=== PATIENT | female | born 1935 | race Caucasian/White ===

== ENCOUNTER 2018-11-08 12:42 | Inpatient (IN) ==
[2018-11-08] MEDS ORDERED: LOPRESSOR IV ONE (13:22)
--- NOTE | 2018-11-08 13:30 | EKG Report ---
Test Performed on : 11/08/2018 12:57:33 PM Test Reason : weak Blood Pressure : / mmHG Vent. Rate : 131 BPM Atrial Rate : 163 BPM P-R Int : 000 ms QRS Dur : 064 ms QT Int : 292 ms P-R-T Axes : 000 007 -09 degrees QTc Int : 431 ms Atrial fibrillation. with rapid ventricular response. Anteroseptal infarct , age undetermined Abnormal ECG When compared with ECG of 17-NOV-2017 07:36, Atrial fibrillation. has replaced Sinus rhythm. Vent. rate has increased BY 59 BPM Anteroseptal infarct is now present Unconfirmed Result
--- NOTE | 2018-11-08 13:51 | Diag Imaging Result Doc PS360 ---
EXAM: CHEST-1 VIEW INDICATION: tachy TECHNIQUE: One view COMPARISON: 11/17/2017 FINDINGS: There is mild blunting of the right costophrenic angle suggesting a probable small effusion. There is suggestion of minimal atelectasis at the right lung base. The lungs are grossly clear, otherwise. There is no evidence of pneumothorax. The cardiomediastinal silhouette and central vasculature are grossly unremarkable. IMPRESSION: Blunting of the right costophrenic angle suggesting a likely trace effusion. No definite acute pathology, otherwise. Electronically signed by Bert Mesa 11/08/2018 1:49 PM
[2018-11-08 13:54] LABS: BASO# 0.03 X1000 (0.0-0.2); BASO% 0.1 % (0.0-0.8); EOS# 0.01 X1000 (0.0-0.7); HEMATOCRIT 47.8 % (37.0-47.0); HEMOGLOBIN 14.9 g/dL (12.0-16.0); IMM GRAN# 0.15 X1000 (0.0-0.04); IMM GRAN% 0.5 % (0.0-0.5); LYMPH# 1.17 X1000 (1.2-3.4); MCH 29.3 PG (27-31); MCHC 31.2 g/dL (33-37); MCV 94.1 FL (81-99); MONO# 1.57 X1000 (0.11-0.59); MONO% 5.4 % (1.7-9.3); MPV 9.5 FL (7.4-10.4); NEUT# 26.28 X1000 (1.4-6.5); PLT 318 X1000 (130-400); RBC 5.08 XMIL (4.2-5.4); RDW 13.6 % (11.5-14.5); WBC 29.21 X1000 (4.8-10.8)
[2018-11-08 14:11] LABS: BANDS 3 % (0-1); LYMPHS 1 % (21-51); MONO 4 % (1-9); SEGS 92 % (42-75)
[2018-11-08 14:22] LABS: AGAP 14; ALB/GLOB RATIO 0.8; ALBUMIN 3.3 g/dL (3.5-5.0); ALKALINE PHOSPHATASE 200 U/L (32-104); BUN 24 mg/dL (8-22); CALCIUM 10.1 mg/dL (8.8-10.2); CHLORIDE 92 mmol/L (98-107); COSMO 275; CREATININE 0.7 mg/dL (0.5-0.9); ESTIMATED GFR > 60; GLUCOSE 116 mg/dL (70-104); GOT 76 U/L (10-30); GPT 48 U/L (10-36); POTASSIUM 4.7 mmol/L (3.5-5.1); SODIUM 135 mmol/L (136-145); TCO2 29 mmol/L (25-35); TOTAL BILIRUBIN 0.71 mg/dL (0.20-1.00); TOTAL PROTEIN 7.6 g/dL (6.3-8.3)
[2018-11-08] MEDS ORDERED: CARDIZEM IV ONE (14:59)
[2018-11-08] MEDS ORDERED: ZOSYN 3.375 GM in NS 50 ML IV ONE (14:59)
[2018-11-08] MEDS ORDERED: NS 500 ML IV ONE (14:59)
[2018-11-08] MEDS: CARDIZEM 125 MG/D5W 125 MG/125 ML IVPB IV SCH (16:12)
[2018-11-08] MEDS ORDERED: VANCOMYCIN 1 GM/NS 1 GM/250 ML IVPB IV ONE (16:13)
[2018-11-08] MEDS ORDERED: ZOSYN 3.375 GM in NS 50 ML IV SCH (16:15)
[2018-11-08] MEDS ORDERED: NS 1,000 ML IV SCH (16:15)
--- NOTE | 2018-11-08 16:22 | PROVIDER DOCUMENTATION ---
This chart was entered by Mary Nayak Scribe, acting as scribe for Milton Sheldon MD. HPI-General Adult - General Chief Complaint: Palpitations Stated Complaint: AFIB, HIGH HR - HOME HEALTH NURSE SENT Time Seen by Provider: 11/08/18 13:08 Source: patient, family (son) Allergies/Adverse Reactions: Patient Allergies Allergy/AdvReac Type Severity Reaction Status Date / Time No Known Allergies Allergy Verified 11/08/18 13:45 Home Medications: Home Medication List Medication Instructions Recorded Confirmed Last Taken Type Furosemide [Lasix] 40 mg PO DAILY tablet 03/26/17 11/08/18 11/08/18 Rx Donepezil [Aricept] 10 mg PO QHS 07/23/17 11/08/18 11/07/18 History Ferrous Sulfate [Iron] 325 mg PO DAILY 07/23/17 11/08/18 11/08/18 History Folic Acid 1 mg PO QHS 07/23/17 11/08/18 11/07/18 History Lorazepam 1 mg PO TID 07/23/17 11/08/18 Unknown History Metoprolol [Lopressor] 25 mg PO BID 07/23/17 11/08/18 11/08/18 History Mirtazapine [Remeron] 15 mg PO QHS 07/23/17 11/08/18 11/07/18 History Potassium Chloride 20 meq PO DAILY 30 Days #60 07/25/17 11/08/18 11/08/18 Rx tablet.er Apixaban [Eliquis] 5 mg PO BID 11/08/18 11/08/18 11/08/18 History Cyclobenzaprine HCl 5 mg PO DIRECTED PRN 11/08/18 11/08/18 Unknown History Duloxetine HCl [Cymbalta] 20 mg PO QHS 11/08/18 11/08/18 Unknown History Esomeprazole Magnesium 10 mg PO QAM 11/08/18 11/08/18 11/08/18 History Spironolactone [Aldactone] 12.5 mg PO DAILY 11/08/18 11/08/18 11/08/18 History - History of Present Illness -Gen Adult Nature of Presenting Problems: 83 yowf presents to the ed with c/o swollen parotid gland. pt has seen dr jena IZAGUIRRE and has been receiving tx for parotitis. pt home health nurse came out this morning and pt c/o rt jaw pain, fatigue and was in [place] with rvr. pt has hx of afib but home health nurse told son she needed to be seen at the ed. pt is nontoxic in appearance but does have pain to rt jaw with swelling noted. pt has no redness of area on exam Location of Pain/Injury: reports: face (rt jaw) Quality of Pain: reports: aching Severity: reports: moderate Onset/Duration: reports: 1 week ago Timing: reports: still present Modifying Factors: worse with: eating, movement (of rt jaw) Associated Symptoms: reports: fatigue, joint pain (jaw pain). denies: back/neck pain, chest pain, diarrhea, fever/chills, headaches, sinus congestion/drainage, nausea, shortness of breath, vomiting, weakness Similar Symptoms Previously?: Yes (parotitis dx by ENT) Recently seen or treated by another doctor?: Yes (dr bella ENT) Review of Systems - Adult - REVIEW OF SYSTEMS - ADULT Constitutional: denies: chills, fever Eyes: reports: no symptoms reported Ears, Nose, Mouth & Throat: reports: see HPI, other (jaw pain) Cardiovascular: reports: see HPI, irregular heart rate, palpitations. denies: c hest pain, edema Respiratory: denies: cough, shortness of breath, wheezing Gastrointestinal: reports: no symptoms reported Genitourinary: reports: no symptoms reported Musculoskeletal: denies: back pain, neck pain Integumentary: reports: no symptoms reported Neurological: denies: dizziness/vertigo, headache/migraines Psychiatric: reports: no symptoms reported Endocrine: reports: no symptoms reported Hematologic/Lymphatic: reports: no symptoms reported Allergic/Immunologic: reports: no symptoms reported All Other Systems: Reviewed and Negative Past History - Adult - PAST MEDICAL HISTORY-ADULT Review of Records: reports: Old Records Reviewed, Nursing Assessment Review, Medications Reviewed, Social history reviewed & non-contributory. Major Childhood Illnesses: reports: denies history Cardiovascular: reports: A-Fib, blood clots, CHF, HTN Respiratory: reports: denies history Gastrointestinal: reports: denies history Obstetrical/Gynecological: reports: denies history Genitourinary: reports: denies history Musculoskeletal: reports: denies history Hand Dominance: Right Handed Neurological: reports: denies history Endocrine/Immune: reports: Diabetes Other Conditions: reports: denies history - PRIOR SURGERIES/PROCEDURES Surgical/Procedure History: reports: hysterectomy, tonsillectomy, appendectomy, cholecystectomy - IMMUNIZATION STATUS Childhood Immunizations: See Nurse Assessment Flu Vaccine: See Nurse Assessment - FAMILY HISTORY Family History: reviewed, not pertinent - SOCIAL HISTORY Smoking: denies Substance Use: denies Living Situation: family Physical Exam-General - PHYSICAL EXAM-ADULT Initial Vital Signs Reviewed: Yes - CONSTITUTIONAL General Appearance: appears well, alert - EYES Eyes: PERRL/EOMI, pink conjunctivae - HEAD, EARS, NOSE, MOUTH & THROAT HENMT: moist mucous membranes, pharynx normal, other (rt jaw pain with parotitis and swelling firm to palpation). negative: pharyngeal erythema, tonsillar exudate - NECK Neck: full range of motion, supple, normal inspection - RESPIRATORY Respiratory: chest non-tender, lungs clear, normal breath sounds, increased rate - CARDIOVASCULAR Cardiovascular: normal peripheral pulses, irregularly irregular (afib with rvr) - CHEST (BREASTS) Chest/Breast: deferred - GASTROINTESTINAL (ABDOMEN) Abdominal Exam: normal bowel sounds, non tender, soft - LYMPHATIC Lymphatic: enlargement (of parotid rt side) - MUSCULOSKELETAL Back Exam: normal inspection Extremity: normal range of motion, non-tender, normal inspection, normal capillary refill, pelvis stable - SKIN Integumentary: normal color, normal turgor, warm/dry. negative: erythema - NEUROLOGIC Neurologic: grossly normal, no motor/sensory deficits - PSYCHIATRIC Psych/Mental Status: normal mood/affect, normal thought content, normal thought process, oriented x 3 Progress - PLAN OF CARE/RESULTS Progress/Plan/Lab Results: Vital Signs - 8 hr 11/08/18 12:54 Temperature 98.2 F Pulse Rate 131 H Respiratory Rate 48 H Blood Pressure 116/65 O2 Sat by Pulse Oximetry 98 Orders Category Date Time Status Nursing- Obtain EKG ONCE Care 11/08/18 13:22 Active CHEST-1 VIEW [RAD] Stat Exams 11/08/18 13:22 Ordered CBC WITH DIFF [HEME] Stat Lab 11/08/18 13:21 Uncollected COMPREHENSIVE METABOLIC PANEL [CHEM] Stat Lab 11/08/18 13:22 Uncollected PRO B-NATRIURETIC PEPTIDE Stat Lab 11/08/18 13:22 Uncollected TROPONIN T Stat Lab 11/08/18 13:22 Uncollected Metoprolol [Lopressor] Med 11/08/18 13:22 Once 5 mg IV NOW ONE EKG [EKG] Stat Ther 11/08/18 13:22 Ordered Result Diagrams: 11/08/18 13:30 11/08/18 13:30 - EKG 1 Time of EKG reading by physician:: 13:05 EKG Read and Signed by:: Milton Sheldon EKG Interpretation (*Must complete 3 of following elements*): Abnormal Rate: 131 Rhythm: afib with rvr [place]: normal QRS: normal [place] Interval: normal ST Wave: normal Comments: anteroseptal infarct, age undetermined - XRAY 1 XRAY: Bilateral XRAY Study: Chest Impression: See EMR Report (EXAM: CHEST-1 VIEW INDICATION: tachy TECHNIQUE: One view COMPARISON: 11/17/2017 FINDINGS: There is mild blunting of the right costophrenic angle suggesting a probable small effusion. There is suggestion of minimal atelectasis at the right lung base. The lungs are grossly clear, otherwise. There is no evidence of pneumothorax. The cardiomediastinal silhouette and central vasculature are grossly unremarkable. IMPRESSION: Blunting of the right costophrenic angle suggesting a likely trace effusion. No definite acute pathology, otherwise. Electronically signed by Bert Mesa 11/08/2018 1:49 PM 11/08/18 1349 Interpreting Physician: Bert Mesa MD Dictated Date/Time: 11/08/18 1347 cc: Milton Sheldon MD; Nabil Gonzalez MD) - CONSULTS/PCP/HOSPITALIST Notification #1 *Consult/PCP/Hospitalist*: dr gonzalez Time Discussed: 15:14 (dr gonzalez will give pt to hospitalist ) Reason/Comments: phone consult Consult Disposition: Will see in ED Departure - Departure Date of Disposition Decision: 11/08/18 Time of Disposition Decision: 15:00 DIAGNOSIS: Atrial fibrillation with RVR, Parotitis, Leukocytosis Disposition: ADMITTED INPATIENT 09 Certified Medical Emergency: Emergent Condition: Fair Referrals and Follow-Ups: Nabil Gonzalez MD [Primary Care Provider] - - Critical Care Note This patient required my direct & personal management of CC.: Yes Total Time (mins): 48 Critical Care Statement: This patient required my direct personal management to treat or rule out processes, the absence of which, could potentiallly result in sudden, clinically significant life or limb threatening deterioration. Attestation - Physician/ NICK Attestation Patient care was provided by Advanced Practice Provider:: No The physician spent face to face time with patient:: Yes Advanced Practice Provider documentation review:: Supervising physician onsite and consulted in the evaluation and care of this patient. The physician did have a face to face encounter with the patient. This chart was documented by the indicated scribe, (Mary Nayak Scribe) and accurately reflects the services I performed and decisions made by me, Milton Sheldon MD, as attested by the provider's signature.
--- NOTE | 2018-11-08 16:49 | HISTORY AND PHYSICAL ---
She is complaining of her heart rate being rapid. She had been recently treated by ENT for parotid irritation, parotitis and put on some p.o. antibiotics and noticed some palpitations and came to the emergency room. She has not been eating or drinking much and she is a little bit volume depleted. Her heart rate was in the 150s with underlying atrial fibrillation. PAST MEDICAL HISTORY: 1. Chronic atrial fibrillation. 2. Heart failure. 3. Hypertension . 4. COPD. 5. Dementia. According to her sons she has had intermittent episodes of shortness of breath in the past, did not really complain much shortness of breath today but has been troubled by her parotitis and not eating and drinking and rapid heart rate. Denies fever, chills, denies pleuritic pain, denies squeezing chest pain. No real dyspnea. No orthopnea, no paroxysmal nocturnal dyspnea. FAMILY HISTORY: Negative for heart disease and diabetes. Her mother had breast cancer. SOCIAL HISTORY: She does not smoke or drink or use illicit drugs lives at home. Sitter to help her now and there. PAST SURGICAL HISTORY: 1. Status post hysterectomy. 2. Cholecystectomy. 3. Appendectomy. REVIEW OF SYSTEMS: General: No weight gain or loss. No fever, chills. HEENT: Unremarkable. No change in visual or hearing acuity. Swelling and pain in her right parotid. Respiratory: No increased work of breathing or dyspnea. Cardiovascular: No chest pain or tachy palpitation. GI/: Unremarkable. Musculoskeletal/Neurologic: No significant complaints. Endocrinologic/hemologic: No significant history. PHYSICAL EXAM: In the emergency room temperature 98.2 degrees, pulse 123, respirations 48, blood pressure 127/93. Pupils are equal round. LUNGS: Clear in all lung kendall. CARDIOVASCULAR: Regular rhythm and rate without murmur or S3. ABDOMEN: Soft. SKIN: Warm and dry. Weight 126 pounds, height 5 feet 6 inches. LABS: White count 25,210, hematocrit is 47, hemoglobin is 14.7, platelet count 318,000. Sodium 135, potassium 4.7, chloride 92, BUN 24, creatinine 0.7, calcium 10. Troponin was less than 0.01, AST mildly elevated at 76, ALT was 48, alkaline phos 200. ProBNP 5077. Albumin is 33. Chest x- ray, blunting of the right costovertebral angle suggesting likely trace effusion. No definite acute pathology. ASSESSMENT AND PLAN: 1. She has an elevated white count. I think that is mainly demargination. I am going to put her on some IV antibiotics for parotitis and what I will do is put her on Zosyn and see if we can get some of this irritation down. I put her on Zosyn and probably some vancomycin. 2. Volume contraction. So give her a little bit of IV fluids. 3. Underlying atrial fibrillation with rapid rate seems the Cardizem is helping. I will put her into the PVC unit. cc: Nabil Hahn MD
[2018-11-08] MEDS ORDERED: FLEXERIL PO PRN (19:14)
[2018-11-08] MEDS: CYMBALTA PO SCH (22:10)
[2018-11-08] MEDS: ELIQUIS PO SCH (22:10)
[2018-11-08] MEDS: FOLIC ACID PO SCH (22:11)
[2018-11-08] MEDS: REMERON PO SCH (22:11)
[2018-11-08] MEDS: ARICEPT PO SCH (22:11)
[2018-11-08] MEDS: LOPRESSOR PO SCH (22:11)
[2018-11-08] MEDS: ATIVAN PO SCH (22:11)
[2018-11-09] MEDS: CARDIZEM 125 MG/D5W 125 MG/125 ML IVPB IV SCH ×2 (00:45→11:48)
[2018-11-09 06:21] LABS: ALB/GLOB RATIO 0.8; ALBUMIN 2.8 g/dL (3.5-5.0); BASO# 0.02 X1000 (0.0-0.2); BASO% 0.1 % (0.0-0.8); CALCIUM 9.1 mg/dL (8.8-10.2); CREATININE 0.9 mg/dL (0.5-0.9); EOS# 0.01 X1000 (0.0-0.7); HEMATOCRIT 44.8 % (37.0-47.0); HEMOGLOBIN 13.8 g/dL (12.0-16.0); IMM GRAN# 0.13 X1000 (0.0-0.04); IMM GRAN% 0.5 % (0.0-0.5); LYMPH# 0.82 X1000 (1.2-3.4); LYMPH% 3.1 % (20.5-51.1); MCH 29.6 PG (27-31); MCHC 30.8 g/dL (33-37); MCV 96.1 FL (81-99); MONO# 2.18 X1000 (0.11-0.59); MONO% 8.1 % (1.7-9.3); MPV 9.3 FL (7.4-10.4); NEUT# 23.67 X1000 (1.4-6.5); NEUT% 88.2 % (42.2-75.2); PLT 300 X1000 (130-400); POTASSIUM 5.1 mmol/L (3.5-5.1); RBC 4.66 XMIL (4.2-5.4); RDW 13.6 % (11.5-14.5); TOTAL BILIRUBIN 0.69 mg/dL (0.20-1.00); TOTAL PROTEIN 6.4 g/dL (6.3-8.3); WBC 26.83 X1000 (4.8-10.8)
[2018-11-09] MEDS: LOPRESSOR PO SCH ×2 (08:36→20:00)
[2018-11-09] MEDS: KLOR-CON PO SCH (08:36)
[2018-11-09] MEDS: LASIX PO SCH (08:39)
[2018-11-09] MEDS: FERROUS SULFATE PO SCH (08:39)
[2018-11-09] MEDS: ALDACTONE PO SCH (08:39)
[2018-11-09] MEDS: ELIQUIS PO SCH ×2 (08:40→20:00)
[2018-11-09] MEDS: ATIVAN PO SCH ×3 (08:40→20:00)
[2018-11-09] MEDS ORDERED: NEXIUM PO SCH (09:00)
[2018-11-09 09:02] LABS: BANDS 2 % (0-1); LYMPHS 2 % (21-51); MONO 8 % (1-9); SEGS 88 % (42-75)
[2018-11-09] MEDS ORDERED: VANCOMYCIN IV PER PHARMACY MISC SCH (14:30)
[2018-11-09] MEDS: CARDIZEM PO SCH ×2 (15:03→20:00)
[2018-11-09] MEDS: ZOSYN 2.25 GM in NS 50 ML IV SCH ×2 (15:03→20:00)
--- NOTE | 2018-11-09 15:55 | PROGRESS NOTE ---
DATE: 11/09/2018 SUBJECTIVE: Ms. Burrell is feeling better. In fact, she is asking to go home. Her right parotid is less tender. She is eating. OBJECTIVE: Vital signs: Temperature 98.1 degrees, pulse 70, respirations 34, blood pressure 109/57. HEENT: Pupils are equal and round. Lungs: Clear in all lung kendall. Cardiovascular: Regular rhythm and rate without murmur or S3. Abdomen: Soft. Skin: Warm and dry. DIAGNOSTIC STUDIES: Her telemetry strips show atrial fib, remains predominantly in atrial fibrillation. ASSESSMENT AND PLAN: 1. Right parotitis, antibiotics have been held. So I want her on the Zosyn and vancomycin, get a dose of that. Continue IV fluids. 2. Volume contraction. This has improved. 3. Atrial fibrillation. Had her on IV Cardizem. We will switch her to p.o. Cardizem 30 mg p.o. q.6. Rate seems to be well controlled and her blood pressure looks good, 109/57. Her heart rate is in the 70s to 90s. 4. Review of orders. She will be getting Zosyn 2.25 g IV q.6 and she is going to get vancomycin renal dosing. Seems to be doing better. I switched her over to p.o. Cardizem. cc: Nabil Hahn MD MTDIlir
[2018-11-09] MEDS: VANCOMYCIN 1 GM/NS 1 GM/250 ML IVPB IV SCH (16:51)
[2018-11-09] MEDS: FOLIC ACID PO SCH (20:00)
[2018-11-09] MEDS: CYMBALTA PO SCH (20:00)
[2018-11-09] MEDS: REMERON PO SCH (20:00)
[2018-11-09] MEDS: ARICEPT PO SCH (20:00)
[2018-11-09] MEDS: NS 1,000 ML IV SCH (20:58)
[2018-11-10] MEDS: ZOSYN 2.25 GM in NS 50 ML IV SCH ×5 (01:05→21:34)
[2018-11-10] MEDS: CARDIZEM PO SCH ×4 (01:05→21:34)
[2018-11-10] MEDS: FERROUS SULFATE PO SCH (08:09)
[2018-11-10] MEDS: LOPRESSOR PO SCH ×2 (08:09→21:34)
[2018-11-10] MEDS: ELIQUIS PO SCH ×2 (08:09→21:35)
[2018-11-10] MEDS: KLOR-CON PO SCH (08:09)
[2018-11-10] MEDS: ALDACTONE PO SCH (08:09)
[2018-11-10] MEDS: ATIVAN PO SCH ×3 (08:09→21:34)
[2018-11-10] MEDS: LASIX PO SCH (08:10)
[2018-11-10] MEDS ORDERED: NEXIUM PO SCH (09:00)
[2018-11-10] MEDS: NEXIUM PO SCH (09:40)
[2018-11-10] MEDS: NS 1,000 ML IV SCH (09:41)
[2018-11-10] MEDS: VANCOMYCIN 1 GM/NS 1 GM/250 ML IVPB IV SCH (17:15)
--- NOTE | 2018-11-10 17:45 | PROGRESS NOTE ---
DATE: 11/10/2018 SUBJECTIVE: Ms. Burrell feels better. Her right parotid swelling has gone down. She remains afebrile. OBJECTIVE: Temperature 98.4 degrees, pulse 78, respirations 16, blood pressure 131/61. Pupils are equal and round. Lungs are clear in all lung kendall.Cardiovascular: Regular rhythm and rate without murmur or S3. Urine output was 1000 mL. ASSESSMENT AND PLAN: 1. Right parotitis. Antibiotics of Zosyn and vancomycin and seems to be doing better, getting IV fluids, sucking on lemon drops. 2. Volume contraction, which is improved with IV fluids. 3. Atrial fibrillation with rapid ventricular rate. We put her on p.o. Cardizem. Rate seems to be well controlled. 4. Nutrition is good. Hopefully, she can go home tomorrow. cc: Nabil Hahn MD
[2018-11-10] MEDS: REMERON PO SCH (21:34)
[2018-11-10] MEDS: ARICEPT PO SCH (21:34)
[2018-11-10] MEDS: FOLIC ACID PO SCH (21:34)
[2018-11-10] MEDS: CYMBALTA PO SCH (21:35)
[2018-11-11] MEDS: NS 1,000 ML IV SCH ×2 (00:35→08:14)
[2018-11-11] MEDS: ZOSYN 2.25 GM in NS 50 ML IV SCH ×4 (02:10→20:35)
[2018-11-11] MEDS: CARDIZEM PO SCH ×4 (02:10→20:35)
--- NOTE | 2018-11-11 07:44 | PROGRESS NOTE ---
DATE: 11/11/2018 SUBJECTIVE: Ms. Burrell was sleeping, easy to arouse. She says she is a little bit lethargic, a little bit sleepy, but she has been eating pretty good. OBJECTIVE: Temperature 97.8 degrees, pulse 80, respirations 28, blood pressure 130/60. Pupils are equal round. Lungs are clear in all lung kendall. Cardiovascular: Regular rhythm and rate without murmur or S3. Urine output is 2300 mL. ASSESSMENT AND PLAN: 1. Right parotitis, improving. She is on Zosyn and vancomycin. 2. Presented with volume contraction. IV fluids seem to have helped. 3. Atrial fibrillation with rapid ventricular rate. Added Cardizem to her regimen, so hopeful she can go home today. REVIEW OF ORDERS: We have Physical Therapy getting her up. She gets Nexium 40 mg q.a.m. She does take Flexeril 5 mg q.12 p.r.n. and that could make her a little sleepy too. Eliquis 5 mg b.i.d. She is on Cardizem 30 mg q.6 hours, Remeron 15 mg at bedtime, folic acid 1 mg at bedtime, Cymbalta 20 mg a day. cc: Nabil Hahn MD
[2018-11-11] MEDS: ALDACTONE PO SCH (08:14)
[2018-11-11] MEDS: ELIQUIS PO SCH ×2 (08:14→20:35)
[2018-11-11] MEDS: NEXIUM PO SCH (08:14)
[2018-11-11] MEDS: LOPRESSOR PO SCH ×2 (08:15→20:35)
[2018-11-11] MEDS: FERROUS SULFATE PO SCH (08:15)
[2018-11-11] MEDS: KLOR-CON PO SCH (08:15)
[2018-11-11] MEDS: LASIX PO SCH (08:15)
[2018-11-11] MEDS: ATIVAN PO SCH ×3 (08:19→20:34)
[2018-11-11 11:08] LABS: BASO# 0.07 X1000 (0.0-0.2); BASO% 0.3 % (0.0-0.8); EOS# 0.08 X1000 (0.0-0.7); EOS% 0.4 % (0.0-10.0); HEMOGLOBIN 14.2 g/dL (12.0-16.0); IMM GRAN# 0.16 X1000 (0.0-0.04); IMM GRAN% 0.7 % (0.0-0.5); LYMPH# 0.61 X1000 (1.2-3.4); LYMPH% 2.7 % (20.5-51.1); MCH 30.3 PG (27-31); MCHC 30.2 g/dL (33-37); MCV 100.4 FL (81-99); MONO# 1.45 X1000 (0.11-0.59); MONO% 6.4 % (1.7-9.3); MPV 9.1 FL (7.4-10.4); NEUT# 20.16 X1000 (1.4-6.5); NEUT% 89.5 % (42.2-75.2); PLT 257 X1000 (130-400); RBC 4.68 XMIL (4.2-5.4); RDW 13.5 % (11.5-14.5); WBC 22.53 X1000 (4.8-10.8)
[2018-11-11 11:18] LABS: BANDS 1 % (0-1); LYMPHS 3 % (21-51); MONO 5 % (1-9); SEGS 91 % (42-75)
[2018-11-11] MEDS: VANCOMYCIN 1 GM/NS 1 GM/250 ML IVPB IV SCH (17:56)
[2018-11-11] MEDS: ARICEPT PO SCH (20:34)
[2018-11-11] MEDS: REMERON PO SCH (20:35)
[2018-11-11] MEDS: CYMBALTA PO SCH (20:35)
[2018-11-11] MEDS: FOLIC ACID PO SCH (20:35)
[2018-11-12] MEDS: CARDIZEM PO SCH ×2 (01:28→09:29)
[2018-11-12] MEDS: ZOSYN 2.25 GM in NS 50 ML IV SCH ×2 (02:15→09:30)
[2018-11-12] MEDS: NS 1,000 ML IV SCH (06:46)
[2018-11-12 07:51] VITALS: BP 127/65
[2018-11-12] MEDS: KLOR-CON PO SCH (09:29)
[2018-11-12] MEDS: NEXIUM PO SCH (09:29)
[2018-11-12] MEDS: ALDACTONE PO SCH (09:29)
[2018-11-12] MEDS: LASIX PO SCH (09:29)
[2018-11-12] MEDS: ELIQUIS PO SCH (09:29)
[2018-11-12] MEDS: LOPRESSOR PO SCH (09:29)
[2018-11-12] MEDS: FERROUS SULFATE PO SCH (09:30)
[2018-11-12] MEDS: ATIVAN PO SCH (11:46)
--- NOTE | 2018-11-12 12:22 | DISCHARGE SUMMARY ---
ADMISSION DATE: 11/08/2018 DISCHARGE DATE: 11/12/2018 HISTORY OF PRESENT ILLNESS: This is an 83-year-old. Heart rate felt like it was rapid and recently treated by Ears, Nose and Throat for parotid irritation with p.o. antibiotics and lemon drops. She had parotitis and it was sore and irritated. She had not been eating or drinking much. She appeared to mild volume contraction. Her right parotid was tender. PAST MEDICAL HISTORY: 1. Chronic atrial fibrillation. 2. Heart failure. 3. Hypertension. 4. COPD. 5. Dementia. PAST SURGICAL HISTORY: 1. Status post hysterectomy. 2. Status post cholecystectomy. 3. Appendectomy. HOSPITAL COURSE: She came in with elevated white count and intravascular volume depletion and palpitations. She has underlying atrial fibrillation, ventricular rate was rapid so I put her on some IV Cardizem and that seemed to help, put her on Zosyn and vancomycin and gave her some fluid. She showed steady improvement. I switched her to p.o. Cardizem and we had physical therapy help. [place] like she could go back to assisted living on 11/12/2018. DISCHARGE MEDICATIONS: She will be on Eliquis 5 mg b.i.d., Flexeril 5 mg twice a day, Cardizem 30 mg p.o. q.6 hours, Aricept 10 mg a day, Cymbalta 20 mg at bedtime, Nexium 40 mg q.a.m., ferrous sulfate 325 mg a day, folic acid 1 mg at bedtime, Lasix 40 mg a day, Ativan 0.5 mg p.o. b.i.d., Lopressor 25 mg b.i.d., Remeron 15 mg at bedtime, and we will stop her IV antibiotics. Continue the lemon drops. cc: Nabil Hahn MD
[2018-11-12] MEDS ORDERED: CARDIZEM CD PO SCH (13:30)
== END 2018-11-12 17:30 | disposition home health service (06) | DRG 310 ==
LOC: ED 12:42 → EDIPHOLD 12:43 → 2N 20:29
PROVIDERS: ATTEND Emergency Medicine

== ENCOUNTER 2019-03-14 15:27 | Inpatient (IN) ==
--- NOTE | 2019-03-14 16:30 | Diag Imaging Result Doc PS360 ---
EXAM: CHEST-PORTABLE HISTORY: fall, ams TECHNIQUE: Single view COMPARISON: 11/08/2018 FINDINGS: Poor inspiratory effort. There are [id number] sized bilateral pleural effusions. There is vascular distention. Heart is enlarged. There is bilateral basilar atelectasis and there may be underlying infiltrates in the right lower lobe. No pneumothoraces. There are old rib fractures. IMPRESSION: Cardiomegaly with pulmonary edema and pleural effusions. There may be underlying pneumonia as well. Electronically signed by Kevin Nguyen 03/14/2019 4:28 PM
--- NOTE | 2019-03-14 16:33 | Diag Imaging Result Doc PS360 ---
EXAM: SHOULDER-LEFT HISTORY: fall TECHNIQUE: Two views COMPARISON: None. FINDINGS: No fracture. No dislocation. No separation at the acromioclavicular joint. The bones are osteopenic. IMPRESSION: No acute bony injury. Electronically signed by Kevin Nguyen 03/14/2019 4:30 PM
--- NOTE | 2019-03-14 16:42 | Diag Imaging Result Doc PS360 ---
EXAM: CT MAXILLOFACIAL(SINUS) W/O CO INDICATION: fall, facial injury TECHNIQUE: COMPARISON: None. FINDINGS: There is no evidence of facial bone fracture. Specifically, the nasal bones, zygomatic arches, maxilla, mandible, and pterygoid plates are intact. The orbits are intact. The mandible is normally located. There is mild right ethmoid sinus mucosal thickening and trace right maxillary sinus mucosal thickening. The mastoid air cells are clear. The globes are intact. There is no retrobulbar hematoma. Surrounding soft tissues are grossly unremarkable, otherwise. IMPRESSION: No evidence of facial bone fracture. Electronically signed by Bert Mesa 03/14/2019 4:40 PM
--- NOTE | 2019-03-14 16:43 | Diag Imaging Result Doc PS360 ---
EXAM : CT HEAD/C-SPINE W/O CONTRAST HISTORY: Fall/AMS TECHNIQUE: 1. CT head without contrast 2. CT cervical spine without contrast COMPARISON: Compared to 03/17/2017 FINDINGS: Head: No parenchymal hemorrhage. No epidural or subdural hematoma. No subarachnoid hemorrhage. No mass identified on this noncontrasted exam. No hydrocephalus. No skull fracture Cervical spine: There is good alignment to the cervical spine. No precervical soft tissue swelling. No subluxation. No fracture. IMPRESSION: Head: No hemorrhage. No injury. Cervical spine: No acute fracture. This exam was performed using automated exposure control, adjustment of mA or kV according to patient size, and/or use of iterative reconstruction technique. Electronically signed by Kevin Nguyen 03/14/2019 4:40 PM
[2019-03-14 18:31] LABS: URINE SOURCE CLEAN CATCH
[2019-03-14 18:34] LABS: BASO# 0.05 X1000 (0.0-0.2); BASO% 0.4 % (0.0-0.8); EOS% 0.7 % (0.0-10.0); HEMATOCRIT 44.8 % (37.0-47.0); HEMOGLOBIN 13.9 g/dL (12.0-16.0); IMM GRAN# 0.03 X1000 (0.0-0.04); IMM GRAN% 0.2 % (0.0-0.5); LYMPH# 1.31 X1000 (1.2-3.4); LYMPH% 9.4 % (20.5-51.1); MCH 31.8 PG (27-31); MCV 102.5 FL (81-99); MONO# 0.79 X1000 (0.11-0.59); MONO% 5.7 % (1.7-9.3); MPV 10.2 FL (7.4-10.4); NEUT# 11.67 X1000 (1.4-6.5); NEUT% 83.6 % (42.2-75.2); PLT 152 X1000 (130-400); RBC 4.37 XMIL (4.2-5.4); WBC 13.95 X1000 (4.8-10.8)
[2019-03-14 18:37] LABS: BILIRUBIN URINE NEGATIVE (NEGATIVE); BLOOD URINE TRACE (NEGATIVE); COLOR YELLOW; GLUCOSE URINE NEGATIVE (NEGATIVE); KETONE URINE NEGATIVE (NEGATIVE); LEUKOCYTES URINE LARGE (NEGATIVE); NITRITE URINE POSITIVE (NEGATIVE); PROTEIN URINE NEGATIVE (NEGATIVE); SP GRAVITY URINE 1.012; TURBIDITY URINE CLEAR (CLEAR); UR EPITHELIAL CELLS <10 /HPF (<10); URINE BACTERIA 2+ /HPF; URINE RBC <10 /HPF (<10); URINE WBC TNTC /HPF (<10); UROBILINOGEN URINE NORMAL (NORMAL)
[2019-03-14 18:46] LABS: INR 1.52; PROTIME 18.6 Seconds (11.0-16.0)
[2019-03-14] MEDS ORDERED: ROCEPHIN 1 GM in NS 50 ML IV ONE (18:49)
[2019-03-14 19:15] LABS: ALLEN TEST YES; BE 17.9 mmoll (-3.0-3.0); BLOOD TYPE ARTERIAL; HCO3-(ACT) 38.8 mmoll (20.0-26.0); O2(CT) 17.8 mL/dL (15.0-23.0); O2HB 95.2 % (95.0-99.0); PO2(98.6) 93 mmHg (60-100); SAMPLE BLOOD; THB 13.2 g/dL (11.5-17.4); pH(98.6) 7.32 (7.35-7.45)
[2019-03-14 19:16] LABS: MODALITY CANNULA
[2019-03-14 19:18] LABS: PCO2(98.6) 95 mmHg (35-45)
[2019-03-14 19:20] LABS: ALB/GLOB RATIO 1.5; CALCIUM 9.2 mg/dL (8.8-10.2); CREATININE 0.9 mg/dL (0.5-0.9); POTASSIUM 4.4 mmol/L (3.5-5.1); TOTAL BILIRUBIN 0.93 mg/dL (0.20-1.00); TOTAL PROTEIN 6.6 g/dL (6.3-8.3)
[2019-03-14] MEDS ORDERED: LASIX IV ONE (19:37)
--- NOTE | 2019-03-14 19:40 | PROVIDER DOCUMENTATION ---
This chart was entered by Jocelyne Mesa Scribe, acting as scribe for Kylie Glass MD. HPI-General Adult - General Chief Complaint: Fall Stated Complaint: FALL Time Seen by Provider: 03/14/19 18:29 Source: family Allergies/Adverse Reactions: Patient Allergies Allergy/AdvReac Type Severity Reaction Status Date / Time No Known Allergies Allergy Verified 11/08/18 13:45 Home Medications: Home Medication List Medication Instructions Recorded Confirmed Last Taken Type Furosemide [Lasix] 40 mg PO DAILY tablet 03/26/17 03/15/19 03/14/19 06:00 Rx Donepezil [Aricept] 10 mg PO QHS 07/23/17 03/15/19 03/13/19 20:00 History Ferrous Sulfate [Iron] 325 mg PO DAILY 07/23/17 03/15/19 03/14/19 06:00 History Folic Acid 1 mg PO QHS 07/23/17 03/15/19 03/13/19 History Metoprolol [Lopressor] 25 mg PO BID 07/23/17 03/15/19 03/14/19 06:00 History Mirtazapine [Remeron] 15 mg PO QHS 07/23/17 03/15/19 03/13/19 20:00 History Potassium Chloride 20 meq PO DAILY 30 Days #60 07/25/17 03/15/19 03/14/19 06:00 Rx tablet.er Apixaban [Eliquis] 5 mg PO BID 11/08/18 03/15/19 03/14/19 06:00 History Cyclobenzaprine HCl 0.5 - 1 tab PO DIRECTED PRN 11/08/18 03/15/19 Unknown History Duloxetine HCl [Cymbalta] 20 mg PO QHS 11/08/18 03/15/19 03/13/19 20:00 History Esomeprazole Magnesium 20 mg PO QAM 11/08/18 03/15/19 11/08/18 History Spironolactone [Aldactone] 12.5 mg PO DAILY 11/08/18 03/15/19 03/14/19 06:00 History Brompheniramine/Pseudoephed/Dm 1 - 2 tsp PO Q4H PRN PRN 03/15/19 03/15/19 Unknown History [Jvtjhlyflk-Hmbobzvjugy-Az Syr] Diltiazem HCl [Diltiazem 12Hr ER] 120 mg PO QAM 03/15/19 03/15/19 03/14/19 06:00 History Furosemide [Lasix] 20 mg PO PRN PRN 03/15/19 03/15/19 Unknown History Ibuprofen 200 mg PO Q6H PRN PRN 03/15/19 03/15/19 Unknown History Lorazepam 0.5 mg PO BID 03/15/19 03/15/19 03/14/19 06:00 History Mupirocin Ointment [Bactroban 1 ea TOP TID 03/15/19 03/15/19 Unknown History Ointment] - History of Present Illness -Gen Adult Nature of Presenting Problems: PT IS AN 84 YOWF PRESENTING W/FAMILY TO ER W/CC FALL LAST NIGHT AT [facility]. UNSURE LOC BUT HAS BRUISE TO CHIN AND RT HAND. FAMILY BELIEVES PT HAS A UTI, PT HAS HX OF DEMENTIA BUT HAS BEEN MORE ALTEREDE "TALKING OUT OF HEAD" SINCE WEDNESDAY. SON GAVE PT 2 CRANBERRY PILLS/AZO AND WAS FINE WEDNESDAY. PT ALSO HAS BILAT LE EDEMA THAT HAS BECOME WORSE OVER WKND. PT ALSO HAS HX OF CHF, AFIB AND IS ON ELAQUIS AND LASIX. ON O2 2L CONSISTENTLY THROUGH DAY BUT NOT 07/09. Location of Pain/Injury: reports: face (CHIN), hand(s) (RT HAND) Pain Radiation: reports: no radiation Severity: reports: mild Onset/Duration: reports: 4 days ago Timing: reports: still present Context/Activities at Onset: reports: none Modifying Factors: improves with: nothing Associated Symptoms: reports: other (AMS, BILAT LE EDEMA, FALL) Review of Systems - Adult - REVIEW OF SYSTEMS - ADULT Constitutional: reports: no symptoms reported. denies: chills, fever Eyes: reports: no symptoms reported Ears, Nose, Mouth & Throat: reports: no symptoms reported Cardiovascular: reports: see HPI, edema (BILAT LE). denies: chest pain, orth opnea, palpitations Respiratory: reports: no symptoms reported. denies: dyspnea on exertion, shortness of breath, wheezing Gastrointestinal: reports: no symptoms reported Genitourinary: reports: see HPI, other (POSS UTI) Musculoskeletal: reports: no symptoms reported Integumentary: reports: no symptoms reported Neurological: reports: see HPI, loss of balance, other (AMS). denies: numbness, syncope, tremors Psychiatric: reports: no symptoms reported Endocrine: reports: no symptoms reported Hematologic/Lymphatic: reports: no symptoms reported Allergic/Immunologic: reports: no symptoms reported All Other Systems: Reviewed and Negative Past History - Adult - PAST MEDICAL HISTORY-ADULT Review of Records: reports: Nursing Assessment Review, Medications Reviewed, Social history reviewed & non-contributory. Major Childhood Illnesses: reports: denies history Cardiovascular: reports: A-Fib, blood clots, HTN Respiratory: reports: denies history Gastrointestinal: reports: denies history Obstetrical/Gynecological: reports: denies history Genitourinary: reports: denies history Musculoskeletal: reports: denies history Neurological: reports: denies history Endocrine/Immune: reports: Diabetes Other Conditions: reports: denies history - PRIOR SURGERIES/PROCEDURES Surgical/Procedure History: reports: hysterectomy, tonsillectomy, appendectomy, cholecystectomy - IMMUNIZATION STATUS Childhood Immunizations: See Nurse Assessment Flu Vaccine: See Nurse Assessment - FAMILY HISTORY Family History: reviewed, not pertinent - SOCIAL HISTORY Smoking: non-smoker Substance Use: none/never Physical Exam-General - PHYSICAL EXAM-ADULT Initial Vital Signs Reviewed: Yes - CONSTITUTIONAL General Appearance: no apparent distress, slow to respond, obtunded. negative: appears well, alert - EYES Eyes: PERRL/EOMI - HEAD, EARS, NOSE, MOUTH & THROAT HENMT: normocephalic/atraumatic, moist mucous membranes, other (LARGE BRUISE LEFT CHIN). negative: normal ENT inspection, angioedema - NECK Neck: non-tender, full range of motion, supple, normal inspection - RESPIRATORY Respiratory: chest non-tender, lungs clear, normal breath sounds - CARDIOVASCULAR Cardiovascular: normal peripheral pulses, regular rate, rhythm. negative: no edema - GASTROINTESTINAL (ABDOMEN) Abdominal Exam: normal bowel sounds, non tender, soft - MUSCULOSKELETAL Back Exam: normal inspection Extremity: normal range of motion, non-tender, normal capillary refill, pelvis stable, swelling (BILA LE EDEMA 3+), other (BRUISE ON RT HAND). negative: normal inspection, deformity, erythema, inflammation - SKIN Integumentary: normal color, normal turgor, warm/dry - NEUROLOGIC Neurologic: other (HX OF DEMENTIA, AT BASELINE) - PSYCHIATRIC Psych/Mental Status: other (HX OF DEMENTIA, AT BASELINE) Progress - PLAN OF CARE/RESULTS Progress/Plan/Lab Results: Vital Signs - 8 hr 03/14/19 15:48 Temperature 98.0 F Pulse Rate 102 H Respiratory Rate 19 Blood Pressure 111/61 O2 Sat by Pulse Oximetry 99 Laboratory Results - last 24 hr 03/14/19 03/14/19 03/14/19 18:04 18:15 18:15 WBC 13.95 H RBC 4.37 Hgb 13.9 Hct 44.8 MCV 102.5 H MCH 31.8 H MCHC 31.0 L RDW Std Deviation 13.0 Plt Count 152 MPV 10.2 Immature Gran % (Auto) 0.2 Neut % (Auto) 83.6 H Lymph % (Auto) 9.4 L [place] % (Auto) 5.7 Eos % (Auto) 0.7 Baso % (Auto) 0.4 Immature Gran # (Auto) 0.03 Neut # (Auto) 11.67 H Lymph # (Auto) 1.31 [place] # (Auto) 0.79 H Eos # (Auto) 0.10 Baso # (Auto) 0.05 PT 18.6 H INR 1.52 Urine Source CLEAN CATCH Urine Color YELLOW Urine Turbidity CLEAR Urine pH 6.0 Ur Specific Sargeant 1.012 Urine Protein NEGATIVE Ur Glucose (Stick) NEGATIVE Ur Ketones (Stick) NEGATIVE Urine Blood TRACE A Urine Nitrite POSITIVE A Urine Bilirubin NEGATIVE Urobilinogen Dipstick NORMAL Urine Leukocytes LARGE A Urine WBC (Auto) TNTC A Urine RBC (Auto) <10 U Epithel Cells (Auto) <10 Urine Bacteria (Auto) 2+ Orders Category Date Time Status Nursing- Obtain EKG once Care 03/14/19 15:58 Active CHEST-PORTABLE [RAD] Stat Exams 03/14/19 15:[address] HEAD/C-SPINE W/O CONTRAST [CT] Stat Exams 03/14/19 15:[address] MAXILLOFACIAL(SINUS) W/O CO [CT] Stat Exams 03/14/19 15:57 Completed SHOULDER-LEFT [RAD] Stat Exams 03/14/19 15:55 Completed BLOOD CULTURE [BLDCUL] Stat Lab 03/14/19 15:59 Uncollected CBC WITH ELECTRONIC DIFF [HEME] Stat Lab 03/14/19 18:15 Completed COMPREHENSIVE METABOLIC PANEL [CHEM] Stat Lab 03/14/19 18:15 Received INFLUENZA SCREEN A/B Stat Lab 03/14/19 15:58 Uncollected LACTATE, PLASMA [CHEM] Stat Lab 03/14/19 15:59 Uncollected PRO B-NATRIURETIC PEPTIDE Stat Lab 03/14/19 18:15 Received PROTIME WITH INR [COAG] Stat Lab 03/14/19 18:15 Completed TROPONIN T HIGH SENSITIVITY Stat Lab 03/14/19 18:15 Received URINALYSIS W/POSS RFLX CULT [URINALYSIS] Stat Lab 03/14/19 18:04 Completed EKG [EKG] Stat Ther 03/14/19 15:58 Ordered Result Diagrams: 03/16/19 05:47 03/23/19 05:40 - XRAY 1 XRAY Study: Chest Impression: Abnormal, See EMR Report ( EXAM: CHEST-PORTABLE HISTORY: fall, ams TECHNIQUE: Single view COMPARISON: 11/08/2018 FINDINGS: Poor inspiratory effort. There are [id number] sized bilateral pleural effusions. There is vascular distention. Heart is enlarged. There is bilateral basilar atelectasis and there may be underlying infiltrates in the right lower lobe. No pneumothoraces. There are old rib fractures. IMPRESSION: Cardiomegaly with pulmonary edema and pleural effusions. There may be underlying pneumonia as well. Electronically signed by Kevin Nguyen 03/14/2019 4:28 PM 03/14/19 1628 Interpreting Physician: Kevin Nguyen MD Dictated Date/Time: 03/14/19 1627) 2 XRAY: Left XRAY Study: Shoulder Impression: Normal, See EMR Report ( EXAM: SHOULDER-LEFT HISTORY: fall TECHNIQUE: Two views COMPARISON: None. FINDINGS: No fracture. No dislocation. No separation at the acromioclavicular joint. The bones are osteopenic. IMPRESSION: No acute bony injury. Electronically signed by Kevin Nguyen 03/14/2019 4:30 PM 03/14/19 1630 Interpreting Physician: Kevin Nguyen MD Dictated Date/Time: 03/14/19 1630 cc: Colby Gaspar MD; Nabil Hahn MD) Comparison with other Films: no prior study - CT/MRI 1 CT Study: Facial Bones Impression: Normal, See EMR Report (EXAM: CT MAXILLOFACIAL(SINUS) W/O CO INDICATION: fall, facial injury TECHNIQUE: COMPARISON: None. FINDINGS: There is no evidence of facial bone fracture. Specifically, the nasal bones, zygomatic arches, maxilla, mandible, and pterygoid plates are intact. The orbits are intact. The mandible is normally located. There is mild right ethmoid sinus mucosal thickening and trace right maxillary sinus mucosal thickening. The mastoid air cells are clear. The globes are intact. There is no retrobulbar hematoma. Surrounding soft tissues are grossly unremarkable, otherwise. IMPRESSION: No evidence of facial bone fracture. Electronically signed by Bert Mesa 03/14/2019 4:40 PM 03/14/19 1640) Comparison with other Films: no prior study 2 CT Study: Cervical Spine, Head Impression: Normal, See EMR Report ( EXAM : CT HEAD/C-SPINE W/O CONTRAST HISTORY: Fall/AMS TECHNIQUE: 1. CT head without contrast 2. CT cervical spine without contrast COMPARISON: Compared to 03/17/2017 FINDINGS: Head: No parenchymal hemorrhage. No epidural or subdural hematoma. No subarachnoid hemorrhage. No mass identified on this noncontrasted exam. No hydrocephalus. No skull fracture Cervical spine: There is good alignment to the cervical spine. No precervical soft tissue swelling. No subluxation. No fracture. IMPRESSION: Head: No hemorrhage. No injury. Cervical spine: No acute fracture. This exam was performed using automated exposure control, adjustment of mA or kV according to patient size, and/or use of iterative reconstruction technique. Electronically signed by Kevin Nguyen 03/14/2019 4:40 PM) - CONSULTS/PCP/HOSPITALIST Notification #1 *Consult/PCP/Hospitalist*: Dr. Augustin Time Discussed: 21:26 Consult Disposition: Will see in ED, Admit (to [facility]) Departure - Departure Date of Disposition Decision: 03/14/19 Time of Disposition Decision: 19:38 DIAGNOSIS: CHF exacerbation, Urinary tract infection, Hypercarbia Disposition: ADMITTED INPATIENT 09 Certified Medical Emergency: Emergent Condition: - Critical Care Note This patient required my direct & personal management of CC.: No Attestation - Physician/ NICK Attestation Patient care was provided by Advanced Practice Provider:: No The physician spent face to face time with patient:: Yes Advanced Practice Provider documentation review:: Supervising physician onsite and consulted in the evaluation and care of this patient. The physician did have a face to face encounter with the patient. This chart was documented by the indicated scribe, (Jocelyne Mesa, Marsha) and accurately reflects the services I performed and decisions made by , Kylie Glass MD, as attested by the provider's signature.
--- NOTE | 2019-03-14 23:59 | HISTORY AND PHYSICAL ---
PRIMARY CARE PHYSICIAN: Dr. Hahn. CHIEF COMPLAINT: Confusion for the past several days. HISTORY OF PRESENTING ILLNESS: An 84-year-old female with a history of chronic atrial fibrillation, COPD, hypertension, CHF and dementia, who was brought to the emergency department due to the patient having worsening confusion than her baseline. Apparently, the family states that she was talking out of her mind. Earlier today she went to the bathroom and she fell down. She was brought to the emergency department, where she was evaluated. She had imaging done which did show the possibility of pneumonia.. She did also have a UTI, and due to these findings she will require admission for further evaluation and management. At the time of my examination, the patient denied any fever, chills, chest pain, hemoptysis or any weight changes. The patient is a poor historian. Most of the history is obtained from her son. PAST MEDICAL HISTORY: Includes chronic atrial fibrillation, COPD, hypertension, CHF and dementia. PAST SURGICAL HISTORY: Hysterectomy, cholecystectomy, appendectomy. ALLERGIES: No known drug allergies. CURRENT MEDICATIONS: Eliquis 5 mg p.o. b.i.d., diltiazem 120 mg p.o. daily, Aricept 10 mg p.o. at bedtime, duloxetine 20 mg p.o. at bedtime, esomeprazole 20 mg p.o. daily q.a.m., folic acid 1 mg p.o. daily, furosemide 40 mg p.o. daily, metoprolol 25 mg p.o. b.i.d., Remeron 15 mg p.o. at bedtime, spironolactone 12.5 mg p.o. daily. SOCIAL HISTORY: No history of smoking, alcohol or illicit drug use. She resides at assisted living facility. FAMILY HISTORY: No history of coronary disease. REVIEW OF SYSTEMS: Fourteen-point review of systems is as in HPI. Other systems negative. PHYSICAL EXAMINATION: GENERAL: The patient is resting more comfortably on BiPAP. VITAL SIGNS: Temperature 98 degrees, pulse 102, respirations 19, blood pressure 111/61. HEENT: Atraumatic, normocephalic. Extraocular movements intact. PERRLA. NECK: No masses. CHEST: Rhonchi. CARDIOVASCULAR: Regular rate and rhythm. ABDOMEN: Soft. Positive bowel sounds. EXTREMITIES: Edema +1. NEUROLOGIC: She is awake, alert and oriented x2. GENITOURINARY: No bladder distention. SKIN: Warm. LABORATORY DATA: WBC 13.95, hemoglobin 13.9, hematocrit 44.8, platelets 152,000. PH is 7.32, pCO2 is 95. Sodium 141, potassium 4.4, chloride 88, CO2 is 39, BUN is 18, creatinine is 0.9, glucose 107. ProBNP is 4322. UA is nitrite-positive, and large leukocytes. DIAGNOSTIC DATA: Chest x-ray shows pulmonary edema with possibility of underlying pneumonia as well. ASSESSMENT: This is an 84-year-old female with a history of chronic atrial fibrillation, chronic obstructive pulmonary disease, hypertension, congestive heart failure and dementia, who was brought to the emergency department due to the patient having worsening confusion for the past several days. She was evaluated in the emergency department. It was suspected she had a pneumonia and urinary tract infection, so currently she meets admission requirements for further management. 1. Altered mental status, multifactorial. 2. Chronic obstructive pulmonary disease exacerbation with hypercapnia. 3. Suspected pneumonia. 4. Urinary tract infection. 5. Chronic atrial fibrillation. 6. Congestive heart failure unspecified. PLAN: 1. We will admit the patient to PVC. 2. Continue with neurologic checks. 3. Continue with DuoNeb and BiPAP. 4. We will check blood cultures. Start the patient on IV antibiotics. 5. We will check urine cultures. Continue with antibiotics. 6. We will continue the patient on Eliquis and diltiazem. 7. Monitor on telemetry. 8. Continue with gentle diuresis with Lasix. 9. The patient is on Eliquis, and this will suffice for DVT prophylaxis. 10. We will continue to follow, reassess and make further recommendation based on the patient's clinical course. cc: MD JESSICA Goldberg
[2019-03-15] MEDS: LEVAQUIN 500 MG/D5W 500 MG/100 ML IVPB IV SCH (00:08)
[2019-03-15] MEDS ORDERED: TYLENOL PO PRN (00:10)
[2019-03-15] MEDS ORDERED: ZOFRAN IV PRN (00:10)
--- NOTE | 2019-03-15 08:16 | EKG Report ---
Test Performed on : 03/15/2019 04:15:35 AM Test Reason : fall Blood Pressure : / mmHG Vent. Rate : 104 BPM Atrial Rate : 159 BPM P-R Int : 000 ms QRS Dur : 072 ms QT Int : 322 ms P-R-T Axes : 000 032 -07 degrees QTc Int : 423 ms Atrial fibrillation. with rapid ventricular response. with premature ventricular or aberrantly conduc mara complexes. Septal infarct (cited on or before 08-NOV-2018) Abnormal ECG When compared with ECG of 08-NOV-2018 12:57, Questionable change in initial forces of Anterior leads Nonspecific T wave abnormality now evident in Lateral leads Unconfirmed Result
[2019-03-15 09:30] LABS: BASO# 0.09 X1000 (0.0-0.2); BASO% 0.6 % (0.0-0.8); EOS# 0.17 X1000 (0.0-0.7); EOS% 1.2 % (0.0-10.0); HEMATOCRIT 43.5 % (37.0-47.0); IMM GRAN# 0.03 X1000 (0.0-0.04); IMM GRAN% 0.2 % (0.0-0.5); LYMPH# 1.25 X1000 (1.2-3.4); LYMPH% 8.5 % (20.5-51.1); MCH 31.3 PG (27-31); MCHC 29.9 g/dL (33-37); MCV 104.6 FL (81-99); MONO# 1.03 X1000 (0.11-0.59); MPV 10.4 FL (7.4-10.4); NEUT# 12.19 X1000 (1.4-6.5); NEUT% 82.5 % (42.2-75.2); PLT 131 X1000 (130-400); RBC 4.16 XMIL (4.2-5.4); RDW 13.1 % (11.5-14.5); WBC 14.76 X1000 (4.8-10.8)
[2019-03-15 10:11] LABS: ESTIMATED GFR > 60
[2019-03-15 10:13] LABS: AGAP 14; BUN 16 mg/dL (8-22); CALCIUM 8.9 mg/dL (8.8-10.2); CHLORIDE 86 mmol/L (98-107); COSMO 279; CREATININE 0.8 mg/dL (0.5-0.9); GLUCOSE 73 mg/dL (70-104); POTASSIUM 4.1 mmol/L (3.5-5.1); SODIUM 140 mmol/L (136-145); TCO2 40 mmol/L (25-35)
--- NOTE | 2019-03-15 12:08 | PROGRESS NOTE ---
DATE: 03/15/2019 SUBJECTIVE: Ms. Burrell was admitted on 03/14/2019. A patient of YAZMIN Vidales. An 84-year- old female with history of chronic atrial fibrillation, COPD, hypertension, congestive heart failure, and dementia, was brought into to the emergency department having worsening confusion from baseline. Family states that she was talking out of her mind. Earlier in the day, she went to the bathroom and she fell down, was brought to the emergency room and was evaluated. Imaging done did show possible pneumonia. She had also had a lot of urinary sediment and possible UTI. At the time of examination in the emergency room, she did not have any fever, chills, or chest pain or hemoptysis or any weight changes. PAST MEDICAL HISTORY: 1. Chronic atrial fibrillation. 2. COPD. 3. Hypertension. 4. Congestive heart failure. 5. Dementia. OBJECTIVE: General: Today she states she feels a little better. She was awake and alert, oriented x3. Vital signs: Temperature 97.5 degrees, pulse 117, respirations 30, blood pressure 115/57. HEENT: Pupils were equal. Neck: No distended neck veins. LABORATORY DATA: White count 29094, hematocrit is 43, platelet count is 131,000. Sodium 140, potassium 4.1, chloride 86, bicarb 40, BUN 16, creatinine 0.8. IMAGIN. Chest x-ray from yesterday. Cardiomegaly, pulmonary edema, pleural effusions, and could not rule out underlying pneumonia. 2. Head and cervical spine CT. No hemorrhage, no injury. Cervical spine, no acute fracture. 3. Shoulder x-ray. No acute bony abnormality. ASSESSMENT: 1. Altered mental status, suspect multifactorial. She is better this morning. 2. Chronic obstructive pulmonary disease with exacerbation, hypercapnia, pneumonia. 3. Suspected pneumonia. 4. Some pulmonary venous hypertension, which I think is chronic. 5. Urinary tract infection possibility. Continue present antibiotics. 6. Chronic atrial fibrillation. 7. Congestive heart failure. PLAN: Continue her BiPAP as needed. She is on Eliquis and diltiazem. Continue her current antibiotic which is Levaquin 500 mg IV q.24 hours. Repeat another chest x-ray and some electrolytes and CBC in the morning. She is on ceftriaxone 1 g, got 1 g and then is now on Levaquin. REVIEW OF LABS: From today, white count 40436, hematocrit 35, platelet count 131,000. Sodium 140, potassium 4.1, chloride 86, BUN 16, creatinine 0.8. cc: Nabil Hahn MD
--- NOTE | 2019-03-15 17:31 | Diag Imaging Result Doc PS360 ---
EXAM: CHEST-1 VIEW HISTORY: PNA TECHNIQUE: Single view COMPARISON: 03/14/2019 FINDINGS: There are small to moderate-sized bilateral pleural effusions with pulmonary edema and cardiomegaly similar to prior exam. There is basilar atelectasis and there may be underlying infiltrates. IMPRESSION: No interval improvement. Electronically signed by Kevin Nguyen 03/15/2019 5:29 PM
[2019-03-15] MEDS ORDERED: LEVAQUIN 500 MG/D5W 500 MG/100 ML IVPB IV SCH (21:00)
[2019-03-16] MEDS: LEVAQUIN 500 MG/D5W 500 MG/100 ML IVPB IV SCH ×2 (00:37→23:24)
[2019-03-16 04:44] LABS: ALLEN TEST YES; BE 23.8 mmoll (-3.0-3.0); BLOOD TYPE ARTERIAL; HCO3-(ACT) 43.5 mmoll (20.0-26.0); METHB 1.1 % (0.0-1.5); O2(CT) 16.3 mL/dL (15.0-23.0); O2HB 96.4 % (95.0-99.0); PO2(98.6) 121 mmHg (60-100); SAMPLE BLOOD; SAO2 100.2 % (95.0-100.0); THB 11.9 g/dL (11.5-17.4); pH(98.6) 7.45 (7.35-7.45)
[2019-03-16 04:51] LABS: MODALITY BI PAP; PCO2(98.6) 75 mmHg (35-45)
[2019-03-16] MEDS ORDERED: CARDIZEM IV ONE (05:07)
[2019-03-16] MEDS ORDERED: DILTIAZEM HCL 120 MG PO SCH (05:08)
[2019-03-16] MEDS: CARDIZEM CD PO SCH (05:32)
[2019-03-16 06:03] LABS: BASO# 0.02 X1000 (0.0-0.2); BASO% 0.2 % (0.0-0.8); EOS# 0.16 X1000 (0.0-0.7); EOS% 1.4 % (0.0-10.0); HEMATOCRIT 38.4 % (37.0-47.0); HEMOGLOBIN 11.8 g/dL (12.0-16.0); LYMPH# 0.94 X1000 (1.2-3.4); LYMPH% 8.3 % (20.5-51.1); MCHC 30.7 g/dL (33-37); MCV 104.1 FL (81-99); MONO# 0.96 X1000 (0.11-0.59); MONO% 8.5 % (1.7-9.3); MPV 10.9 FL (7.4-10.4); NEUT# 9.21 X1000 (1.4-6.5); NEUT% 81.6 % (42.2-75.2); PLT 118 X1000 (130-400); RBC 3.69 XMIL (4.2-5.4); RDW 13.4 % (11.5-14.5); WBC 11.29 X1000 (4.8-10.8)
[2019-03-16 06:22] LABS: INR 1.15; PROTIME 14.8 Seconds (11.0-16.0)
--- NOTE | 2019-03-16 06:34 | EKG Report ---
Test Performed on : 03/16/2019 04:57:59 AM Test Reason : Afiv RVR Blood Pressure : / mmHG Vent. Rate : 124 BPM Atrial Rate : 150 BPM P-R Int : 000 ms QRS Dur : 072 ms QT Int : 308 ms P-R-T Axes : 000 023 -46 degrees QTc Int : 442 ms Atrial fibrillation. with rapid ventricular response. Septal infarct (cited on or before 08-NOV-2018) Abnormal ECG When compared with ECG of 15-MAR-2019 04:15, (Unconfirmed) No significant change was found Confirmed by Max JOSHI, Darío Simon ([id number]) on 03/16/2019 7:31:30 AM
[2019-03-16 06:36] LABS: CALCIUM 8.9 mg/dL (8.8-10.2); CREATININE 0.9 mg/dL (0.5-0.9); MAGNESIUM 1.5 mg/dL (1.5-2.7); POTASSIUM 4.1 mmol/L (3.5-5.1)
[2019-03-16] MEDS: CARDIZEM PO SCH ×3 (08:42→20:37)
--- NOTE | 2019-03-16 10:24 | PROGRESS NOTE ---
DATE: 03/16/2019 SUBJECTIVE: Ms. Burrell is feeling better. She is sitting up breathing better, is more comfortable. OBJECTIVE: Vital Signs: She remains afebrile. Temperature 97.8 degrees, pulse 129, respirations 24 and blood pressure 113/69. Eyes: Pupils are equal and round. Lungs: Clear in all lung kendall. Cardiovascular exam: Regular rhythm and rate without murmur or S3. Abdomen: Soft. : Urine output was 1200 mL. IMAGING STUDIES: Chest x-ray from 03/15 showed no interval improvement, small to moderate bilateral pleural effusions, pulmonary edema and cardiomegaly similar to previous exam. Bibasilar atelectasis. ASSESSMENT AND PLAN: 1. Altered mental status, suspect multifactorial. This is better. 2. Chronic obstructive pulmonary disease with exacerbation, hypercapnic and suspect pneumonia. Treating her for pneumonia. Continue present antibiotics and bronchodilators. 3. Pulmonary venous hypertension, which I believe is chronic. Chronic pleural effusions. 4. Urinary tract infection is possible. We will continue to treat for that. 5. Chronic atrial fibrillation. Rate is controlled. 6. History of congestive heart failure. Looking back at echocardiogram with Doppler done on 07/24/2017. Normal left ventricular size. At that time, ejection fraction 65%, and did not see any significant valvular dysfunction. Her pulmonary artery pressures appear to be around 35 to 40 mmHg. So, I am going to get Social Service involved as far as discharge planning. cc: Nabil Hahn MD
[2019-03-16] MEDS: LOPRESSOR PO SCH ×2 (14:03→20:37)
[2019-03-16] MEDS: ALDACTONE PO SCH (14:04)
[2019-03-16] MEDS: LASIX PO SCH (14:04)
[2019-03-16] MEDS: FOLIC ACID PO SCH (20:37)
[2019-03-16] MEDS: REMERON PO SCH (20:37)
[2019-03-16] MEDS: ELIQUIS PO SCH (20:37)
[2019-03-16] MEDS: ATIVAN PO SCH (20:37)
[2019-03-16] MEDS: CYMBALTA PO SCH (20:37)
[2019-03-17] MEDS: CARDIZEM PO SCH ×4 (03:10→20:09)
[2019-03-17] MEDS: LASIX PO SCH (08:19)
[2019-03-17] MEDS: LOPRESSOR PO SCH ×2 (08:19→20:10)
[2019-03-17] MEDS: ATIVAN PO SCH ×2 (08:20→20:09)
[2019-03-17] MEDS: CARDIZEM CD PO SCH (08:20)
[2019-03-17] MEDS: ALDACTONE PO SCH (08:20)
[2019-03-17] MEDS: FERROUS SULFATE PO SCH (08:20)
[2019-03-17] MEDS: KLOR-CON PO SCH (08:20)
[2019-03-17] MEDS: ELIQUIS PO SCH ×2 (08:20→20:09)
--- NOTE | 2019-03-17 13:48 | PROGRESS NOTE ---
DATE: 03/17/2019 SUBJECTIVE: Ms. Burrell is breathing better. She wants to leave the hospital. I explained she does not have any place to go right now. She lives in assisted living. We still need to do some more work on her lungs. They got her up to try and get her on the bedside commode and her saturations did drop. She has remained afebrile. OBJECTIVE: Vital Signs: Temperature 98.4 degrees, pulse 88, respirations 24, blood pressure 122/75. HEENT: Pupils are equal and round. Lungs: Clear in all lung kendall. Cardiovascular: Regular rhythm and rate without murmur or S3. Input and Output: Urine output is 3800 mL. ASSESSMENT AND PLAN: 1. Altered mental status. Suspect it is multifactorial. She still has times where she is confused and agitated. 2. Chronic obstructive pulmonary disease with exacerbation, hypercapnic and suspect pneumonia. Treating her for bibasilar pneumonia. Continue present antibiotics and bronchodilators, supplementary oxygen. 3. Pulmonary venous hypertension, chronic pleural effusions. 4. Urinary tract infection is a possibility. She does have sediment. We are treating her for possible urinary tract infection. 5. Chronic atrial fibrillation, rate is controlled. 6. History of congestive heart failure. Echocardiogram back on 07/24/2017 showed normal left ventricle, ejection fraction 65%. Pulmonary pressures were 35 to 40. She would like to go home, but I think the family would like to get back to assisted living, but we are going to have to see how she does. She will need to stay here through the weekend to see if she can improve her respiratory status and her mental status. She is on Cymbalta 20 mg at bedtime, folic acid 1 mg at bedtime, Remeron 15 mg at bedtime, Cardizem 30 mg p.o. q.6 hours, Eliquis 5 mg b.i.d., diltiazem CD 120 mg a day, ferrous sulfate 325 mg a day, Lasix 40 mg a day, Levaquin 500 mg daily, Ativan 0.5 mg b.i.d., Lopressor 25 mg b.i.d., spironolactone 12.5 mg a day, and she gets potassium chloride 20 mEq daily. REVIEW OF LABS: Her labs from yesterday, white count was 11,290, hematocrit 38, platelet count 118,000. Sodium was 138, potassium 4.1, chloride 86, BUN 19, creatinine 0.9. cc: Nabil Hahn MD
[2019-03-17] MEDS: CYMBALTA PO SCH (20:09)
[2019-03-17] MEDS: REMERON PO SCH (20:09)
[2019-03-17] MEDS: FOLIC ACID PO SCH (20:09)
[2019-03-17] MEDS: LEVAQUIN 500 MG/D5W 500 MG/100 ML IVPB IV SCH (23:55)
[2019-03-18] MEDS: CARDIZEM PO SCH ×4 (01:36→20:30)
[2019-03-18 06:16] LABS: ESTIMATED GFR > 60
[2019-03-18 06:20] LABS: AGAP 9; ALB/GLOB RATIO 0.9; ALBUMIN 2.9 g/dL (3.5-5.0); ALKALINE PHOSPHATASE 70 U/L (32-104); BUN 14 mg/dL (8-22); CALCIUM 9.4 mg/dL (8.8-10.2); CHLORIDE 87 mmol/L (98-107); COSMO 279; CREATININE 0.7 mg/dL (0.5-0.9); GLUCOSE 122 mg/dL (70-104); GOT 20 U/L (10-30); GPT 8 U/L (10-36); MAGNESIUM 1.7 mg/dL (1.5-2.7); POTASSIUM 3.9 mmol/L (3.5-5.1); SODIUM 139 mmol/L (136-145); TCO2 43 mmol/L (25-35); TOTAL BILIRUBIN 0.77 mg/dL (0.20-1.00)
[2019-03-18 06:45] LABS: FREE T4 1.16 ng/dL (0.93-1.70); TSH 1.74 uIUmL (0.27-4.20)
[2019-03-18] MEDS: LASIX PO SCH (09:09)
[2019-03-18] MEDS: KLOR-CON PO SCH (09:09)
[2019-03-18] MEDS: ATIVAN PO SCH ×2 (09:09→20:30)
[2019-03-18] MEDS: ELIQUIS PO SCH ×2 (09:09→20:30)
[2019-03-18] MEDS: LOPRESSOR PO SCH ×2 (09:09→20:30)
[2019-03-18] MEDS: ALDACTONE PO SCH (09:09)
[2019-03-18] MEDS: CARDIZEM CD PO SCH (09:09)
[2019-03-18] MEDS: FERROUS SULFATE PO SCH (09:09)
--- NOTE | 2019-03-18 10:49 | Diag Imaging Result Doc PS360 ---
EXAM: CHEST-PORTABLE INDICATION: copd pneumonia TECHNIQUE: One view COMPARISON: 03/15/2019 FINDINGS: Lung volumes are low similar to the previous study. A moderate-sized right pleural effusion and a smaller left effusion with adjacent atelectasis and/or infiltrate is essentially stable. There is stable pulmonary venous congestion. No new consolidation is identified. Cardiac silhouette is stable. IMPRESSION: Essentially stable chest. Electronically signed by Bert Mesa 03/18/2019 10:47 AM
--- NOTE | 2019-03-18 11:38 | PROGRESS NOTE ---
DATE: 03/18/2019 SUBJECTIVE: Ms. Burrell does feel better. She is stronger, breathing better. She has eaten. Her bowels are moving. She would like to go home. OBJECTIVE: Vital signs: She remains afebrile, temperature 97.4 degrees, pulse 80, respirations 16, blood pressure 126/49. HEENT: Pupils are equal and round. Lungs: Clear in all lung kendall. Cardiovascular: Regular rhythm and rate without murmur or S3. Urine output: 1400 mL. IMAGING: Her chest x-ray from today, stable. Lung volumes were low similar to previous study. Moderate sized right pleural effusion. Smaller left pleural effusion and adjacent atelectasis. Infiltrate is essentially stable and she has stable pulmonary venous congestion, so I think clinically she is improving, better air and gas exchange. ASSESSMENT AND PLAN: 1. Altered mental status, multifactorial, confused and agitated when she presented. This is better. 2. Chronic obstructive pulmonary disease with exacerbation, hypercapnia, suspect bibasilar pneumonia. Continue to treat with bronchodilators and antibiotics. 3. Pulmonary venous hypertension, has chronic pleural effusions. 4. Urinary tract infection which she had some sediment. We are treating her for possible urinary tract infection. 5. Chronic atrial fibrillation, rate is controlled. 6. History of congestive heart failure. Echocardiogram shows she has a normal ventricle, ejection fraction 65%, so I think this represents congestive heart failure with normal ejection fraction. I think we are better. She wants to go back to independent living or assisted living on Wednesday. I think we are progressing. Hopefully can go home on Wednesday. REVIEW OF ORDERS: She is on Eliquis 5 mg twice a day. She is on Cardizem 30 mg p.o. q.6 hours. She is on Remeron 15 mg at bedtime, folic acid 1 mg at bedtime, Cymbalta 20 mg at bedtime, Lasix 40 mg p.o. daily, Levaquin 500 mg IV q.24 hours, Ativan 0.5 mg b.i.d., Lopressor 25 mg b.i.d., spironolactone 12.5 mg daily. LABORATORY DATA: Reviewed from the . Hematocrit 38, hemoglobin 11. Electrolytes from this morning, sodium 139, potassium 3.9, chloride 87, BUN 14, creatinine 0.7. cc: Nabil Hahn MD
[2019-03-18] MEDS: REMERON PO SCH (20:30)
[2019-03-18] MEDS: CYMBALTA PO SCH (20:30)
[2019-03-18] MEDS: FOLIC ACID PO SCH (20:30)
[2019-03-19] MEDS: LEVAQUIN 500 MG/D5W 500 MG/100 ML IVPB IV SCH (00:50)
[2019-03-19] MEDS: CARDIZEM PO SCH ×4 (01:06→20:26)
[2019-03-19] MEDS: ATIVAN PO SCH ×2 (08:10→20:26)
[2019-03-19] MEDS: ALDACTONE PO SCH (08:10)
[2019-03-19] MEDS: CARDIZEM CD PO SCH (08:10)
[2019-03-19] MEDS: LASIX PO SCH (08:10)
[2019-03-19] MEDS: LOPRESSOR PO SCH ×2 (08:10→20:26)
[2019-03-19] MEDS: KLOR-CON PO SCH (08:10)
[2019-03-19] MEDS: ELIQUIS PO SCH ×2 (08:10→20:26)
[2019-03-19] MEDS: FERROUS SULFATE PO SCH (08:10)
--- NOTE | 2019-03-19 12:08 | PROGRESS NOTE ---
DATE: 03/19/2019 SUBJECTIVE: Ms. Burrell is still pretty weak. She cannot get up and walk very far. She wants to get out of the hospital but she knows she is pretty puny. PHYSICAL EXAMINATION: Vital Signs: Remains afebrile, temperature 97.7 degrees, pulse 70, respirations 20, blood pressure 139/69. HEENT: Pupils are equal and round. Lungs are clear in all lung kendall. Cardiovascular Examination: Regular rhythm and rate without murmur or S3. Abdomen is soft. Skin is warm and dry. ASSESSMENT AND PLAN: 1. Altered mental status, multifactorial. Confused and agitated when she presented. Doing better. 2. Chronic obstructive pulmonary disease exacerbation, hypercapnia, suspect bibasilar pneumonia. Bronchodilators and antibiotics continue. 3. Pulmonary venous hypertension, chronic pleural effusions. 4. Urinary tract infection versus sediment but we are treating her for a urinary tract infection. 5. Chronic atrial fibrillation, rate is controlled. 6. Congestive heart failure. Echocardiogram shows normal ventricle with ejection fraction of 65%. 7. We are trying to get her back to independent living so we will continue physical therapy. PRESENT MEDICATIONS: Cymbalta 20 mg p.o. at bedtime, folic acid 1 mg p.o. at bedtime, Remeron 15 mg p.o. at bedtime, Cardizem 30 mg p.o. q.6 hours, Eliquis 5 mg b.i.d., Cardizem CD 120 mg daily, ferrous sulfate 325 mg a day, Lasix 40 mg p.o. q.a.m., Levaquin 500 mg IV q.24 hours, Ativan 0.5 mg p.o. b.i.d., Lopressor 25 mg p.o. b.i.d., spironolactone 12.5 mg p.o. daily. LABS: Reviewed. cc: Nabil Hahn MD
[2019-03-19] MEDS: REMERON PO SCH (20:26)
[2019-03-19] MEDS: FOLIC ACID PO SCH (20:26)
[2019-03-19] MEDS: CYMBALTA PO SCH (20:26)
[2019-03-20] MEDS: LEVAQUIN 500 MG/D5W 500 MG/100 ML IVPB IV SCH (00:30)
[2019-03-20] MEDS: CARDIZEM PO SCH ×4 (01:08→20:46)
[2019-03-20] MEDS: KLOR-CON PO SCH (08:53)
[2019-03-20] MEDS: ALDACTONE PO SCH (08:53)
[2019-03-20] MEDS: LOPRESSOR PO SCH ×2 (08:53→20:46)
[2019-03-20] MEDS: FERROUS SULFATE PO SCH (08:53)
[2019-03-20] MEDS: ELIQUIS PO SCH ×2 (08:53→20:46)
[2019-03-20] MEDS: LASIX PO SCH (08:53)
[2019-03-20] MEDS: ATIVAN PO SCH ×2 (08:53→20:46)
[2019-03-20] MEDS: CARDIZEM CD PO SCH (08:53)
[2019-03-20] MEDS ORDERED: LASIX IV ONE (10:07)
[2019-03-20] MEDS ORDERED: LASIX ONE (10:18)
--- NOTE | 2019-03-20 10:48 | Diag Imaging Result Doc PS360 ---
EXAM: CHEST-PORTABLE 03/20/2019 HISTORY: pneumonia possible aspiration TECHNIQUE: AP portable upright at 1032 COMMENT: There are bilateral pleural effusions. There is some pulmonary edema which is mostly evident in the left lower lobe. Compared to 03/18/2019 there appears to be more pleural fluid on the right and left pulmonary edema. IMPRESSION: Bilateral pleural effusions worse on the right. Electronically signed by Chevy Lara 03/20/2019 10:46 AM
[2019-03-20 10:54] LABS: ALLEN TEST YES; BE 19.2 mmoll (-3.0-3.0); BLOOD TYPE ARTERIAL; HCO3-(ACT) 39.7 mmoll (20.0-26.0); METHB 1.3 % (0.0-1.5); O2(CT) 18.3 mL/dL (15.0-23.0); O2HB 91.9 % (95.0-99.0); PO2(98.6) 76 mmHg (60-100); SAMPLE BLOOD; SAO2 95.6 % (95.0-100.0); THB 14.1 g/dL (11.5-17.4)
[2019-03-20 10:58] LABS: MODALITY BI PAP; PCO2(98.6) 143 mmHg (35-45); pH(98.6) 7.19 (7.35-7.45)
--- NOTE | 2019-03-20 12:43 | PROGRESS NOTE ---
DATE: 03/20/2019 SUBJECTIVE: Ms. Burrell is not breathing as well. She says it is harder to breathe. The nurses state she seemed to have trouble with breakfast, and concerned she might have aspirated. This progressed and CO2 retention went up. We have gone up on the BiPAP. The son does not want a ventilator, so she is a no code. I think a level 2. I gave her an additional dose of IV Lasix. OBJECTIVE: Temperature is 97.3. She has remained afebrile, pulse 70, and respirations 18 that went up to around 30 times per minute, and is netter now on the BiPAP. She is wore out and tired sitting up in the bed with the head slumped over. Blood pressure 125/56. Lungs with diminished breath sounds in both bases. No wheezing. CVP. No distended neck veins. Cardiovascular exam regular rhythm and rate. Abdomen is soft. No pedal edema. Urine output from yesterday was about 500 mL. Chest x-ray bilateral pleural effusions, worse on the right, some pulmonary edema which is mostly evident in the left lower lobe. Compared to 03/18/2019, there appears to be more pleural fluid on the right. ASSESSMENT AND PLAN: 1. She presented with altered mental status. I think this is mainly related to her gas exchange, confused and agitated. This improved. She was put on BiPAP. 2. Chronic obstructive pulmonary disease exacerbation, hypercapnia, suspect bibasilar atelectasis and probable pneumonia. Continue bronchodilators and antibiotics. She is worsened, not sure if she aspirated. We will try and diurese a little more aggressively. We will ask Pulmonary to come and assist. They do not want to go on a ventilator. 3. Pulmonary venous hypertension, chronic pleural effusion. Suspect cor pulmonale. 4. Urinary tract infection. We are treating her for possible urinary tract infection as well. 5. Chronic atrial fibrillation, rate has been controlled. 6. Congestive heart failure. Suspect mainly diastolic dysfunction. Echocardiogram was last done and showed ejection fraction of 65%. 7. We are trying to get her back to independent living, but she is obviously not ready, and has made a turn for the worse. REVIEW OF ORDERS: She is on Cymbalta 20 mg at bedtime, folic acid 1 mg at bedtime, and Remeron 15 mg at bedtime. We have her on Cardizem 30 mg p.o. q.6 hours, Eliquis 5 mg p.o. b.i.d., Cardizem CD 120 mg every morning, ferrous sulfate 325 mg a day. We were giving her Lasix 40 mg p.o. daily. I gave her a dose of 80 mg IV just now, and we will change her to IV Lasix. She is on Levaquin 500 mg IV daily, Ativan 0.5 mg b.i.d., Lopressor 25 mg b.i.d., spironolactone 12.5 mg a day, and potassium chloride 20 mEq daily. LABORATORY DATA: Her labs from today, I am going to repeat some electrolytes and repeat her CBC. Her blood gas showed she had a pH of 7.19, pCO2 of 143, and PO2 of 76. O2 saturation was 95% and that was on BiPAP with 100% FiO2 and pressures of inspiratory expiratory were 10 and 5. cc: Nabil Hahn MD
[2019-03-20] MEDS: LASIX IV SCH (13:23)
[2019-03-20 14:06] LABS: ALLEN TEST YES; BLOOD TYPE ARTERIAL; HCO3-(ACT) 41.3 mmoll (20.0-26.0); METHB 1.3 % (0.0-1.5); O2(CT) 18.5 mL/dL (15.0-23.0); O2HB 96.2 % (95.0-99.0); PO2(98.6) 154 mmHg (60-100); SAMPLE BLOOD; SAO2 99.6 % (95.0-100.0); THB 13.5 g/dL (11.5-17.4); pH(98.6) 7.27 (7.35-7.45)
[2019-03-20 14:10] LABS: MODALITY BI PAP; PCO2(98.6) 118 mmHg (35-45)
[2019-03-20 14:15] LABS: ESTIMATED GFR > 60; MAGNESIUM 1.9 mg/dL (1.5-2.7)
[2019-03-20 14:19] LABS: AGAP 7; BUN 24 mg/dL (8-22); CALCIUM 9.5 mg/dL (8.8-10.2); CHLORIDE 85 mmol/L (98-107); COSMO 279; CREATININE 0.8 mg/dL (0.5-0.9); GLUCOSE 146 mg/dL (70-104); POTASSIUM 5.4 mmol/L (3.5-5.1); SODIUM 136 mmol/L (136-145); TCO2 44 mmol/L (25-35)
[2019-03-20] MEDS: REMERON PO SCH (20:46)
[2019-03-20] MEDS: FOLIC ACID PO SCH (20:46)
[2019-03-20] MEDS: CYMBALTA PO SCH (20:46)
--- NOTE | 2019-03-20 22:57 | PULMONOLOGY CONSULTATION ---
DATE: 03/20/2019 REQUESTING CLINICIAN: Dr. Nabil Hahn. REASON FOR CONSULTATION: Respiratory failure. HISTORY OF PRESENT ILLNESS: Ms. Burrell is an 84-year-old white female with long history of diastolic heart failure, chronic effusions, recurrent fluid retention who was brought to the emergency room with altered mental status and a fall with a bruise on her chin. She has had increasing shortness of breath along with increasing lower extremity edema. Urine culture did reveal an E coli. Chest x-ray reveals cardiomegaly with bilateral effusions right greater than left. She continues to require BiPAP. PAST MEDICAL HISTORY: 1. Hypertension. 2. Diastolic dysfunction. 3. Atrial fibrillation. 4. Pulmonary hypertension. 5. Chronic pleural effusions. 6. Dementia. 7. Recurrent urinary tract infections. 8. Atrial fibrillation. 9. Hiatal hernia. 10. Gastroesophageal reflux disease. 11. Chronic hypoxemic and chronic hypercapnic respiratory failure. SOCIAL HISTORY: The patient currently resides in assisted living, but wants to go home. No tobacco or alcohol use listed. FAMILY HISTORY: Noncontributory to current presentation. REVIEW OF SYSTEMS: Notable for decreased appetite, increased lower extremity edema, shortness of breath. PHYSICAL EXAMINATION: General: Reveals a frail, chronically ill-appearing female currently on BiPAP. Blood pressure 125/60, heart rate 88, respiratory rate 24, oxygen saturation 98% on BiPAP. HEENT: Pupils are equal and reactive. Oropharynx appears clear. Neck: Supple. Chest: Reveals diminished breath sounds bilaterally, right greater than left. Cardiac: S1-S2. Abdomen: Soft. Extremities: Reveal 1+ peripheral edema. LABORATORIES: Arterial blood gas on admission revealed a pH 7.19, pCO2 of 143, PO2 of 76 on BiPAP. Arterial blood gas this afternoon, pH 7.27, pCO2 of 118, PO2 of 154. Chest x-ray reveals large bilateral pleural effusions, which has increased despite diuresis. White blood count 11.29, hemoglobin 11.8, platelet count 118,000. Sodium 136, potassium 5.4, chloride 85, bicarbonate 44, BUN 24, creatinine 0.8. ProBNP is elevated at 5701. IMPRESSION: An 84-year-old with 1. Acute on chronic hypoxemic respiratory failure. 2. Acute on chronic hypercapnic respiratory failure. 3. Pleural effusions. 4. Atrial fibrillation. 5. Diastolic heart failure. 6. Acute on chronic cor pulmonale. DISCUSSION: An 84-year-old with problems outlined above. She clearly has retained a significant amount of fluid. It is difficult to discern whether she might have an underlying pneumonia as well. She does have some leukocytosis, but she did present with a urinary tract infection. PLAN: 1. Continue BiPAP through the evening. 2. Continue diuresis as tolerated. 3. Continue oxygen to prevent hypoxemic respiratory failure. 4. Agree with current antibiotics although it is not certain that she has a pneumonia. 5. Additional recommendations pending hospital course. cc: Charli Solares MD
[2019-03-21] MEDS: CARDIZEM PO SCH ×4 (01:04→20:25)
[2019-03-21] MEDS: LASIX IV SCH ×3 (01:04→14:43)
[2019-03-21] MEDS: LEVAQUIN 500 MG/D5W 500 MG/100 ML IVPB IV SCH (01:04)
[2019-03-21] MEDS ORDERED: LASIX ONE (06:28)
[2019-03-21 06:47] LABS: CALCIUM 9.2 mg/dL (8.8-10.2); CREATININE 0.9 mg/dL (0.5-0.9); POTASSIUM 4.5 mmol/L (3.5-5.1)
[2019-03-21] MEDS: ELIQUIS PO SCH ×2 (08:25→20:26)
[2019-03-21] MEDS: ALDACTONE PO SCH (08:26)
[2019-03-21] MEDS: FERROUS SULFATE PO SCH (08:26)
[2019-03-21] MEDS: KLOR-CON PO SCH ×3 (08:26→08:42)
[2019-03-21] MEDS: ATIVAN PO SCH ×2 (08:26→20:26)
[2019-03-21] MEDS: LOPRESSOR PO SCH ×2 (08:26→20:25)
[2019-03-21] MEDS: CARDIZEM CD PO SCH (08:27)
[2019-03-21] MEDS: MORPHINE IV PRN (10:32)
--- NOTE | 2019-03-21 13:33 | PROGRESS NOTE ---
DATE: 03/21/2019 SUBJECTIVE: She is on BiPAP. She is opening her eyes and she is more awake and alert. OBJECTIVE: Temp 98.6 degrees, pulse 78, respirations 20, blood pressure 89/70. Pupils are equal and round. Lungs are clear in all lung kendall. Cardiovascular regular rate without murmur or S3. Urine output is 2300 mL. ASSESSMENT AND PLAN: 1. Acute on chronic hypoxemic respiratory failure, acute on chronic hypercapnic respiratory failure. She has bilateral pleural effusions and has pulmonary venous hypertension, underlying atrial fibrillation, diastolic heart failure, and acute on chronic cor pulmonale now so we are continuing BiPAP and trying to diurese her as tolerated. Continue her oxygen and continue present antibiotics. She is appears to show some improvement from yesterday. 2. We had treated her for possible urinary tract infection. REVIEW OF HER ORDERS: She is on Cymbalta 20 mg at bedtime, folic acid 1 mg at bedtime, Remeron 15 mg at bedtime, Cardizem 30 mg p.o. q. 6 hours, Eliquis 5 mg p.o. b.i.d., Cardizem CD 120 mg every morning, ferrous sulfate 325 mg a day, Lasix 40 mg IV q. 12, Levaquin 500 mg IV q. 24 hours, Ativan 0.5 mg b.i.d., spironolactone 12.5 mg daily. REVIEW OF LABS: Her lab from this morning: Sodium 141, potassium 4.5, chloride 95, BUN 27, creatinine 0.9. cc: Nabil Hahn MD
[2019-03-21] MEDS: CYMBALTA PO SCH (20:26)
[2019-03-21] MEDS: FOLIC ACID PO SCH (20:26)
[2019-03-21] MEDS: REMERON PO SCH (20:26)
--- NOTE | 2019-03-21 23:47 | PULMONOLOGY PROGRESS NOTE ---
DATE: 03/21/2019 SUBJECTIVE: The patient is awake, alert and conversant. She is currently on BiPAP. She reports she has had a good day and she thanked me for coming to see her. OBJECTIVE: The patient has been afebrile for the last 24 hours. Blood pressure 95/39, heart rate 81, respiratory rate 24, oxygen saturation 97%. HEENT: Pupils are equal and reactive. Oropharynx appears clear, but evaluation is limited with BiPAP in place. Neck is supple. Chest reveals diminished breath sounds bilaterally. Cardiac exam: S1, S2. Abdomen is soft. Extremities without edema. LABORATORY DATA: Sodium 141, potassium 4.5, chloride 85, bicarbonate 49, BUN 27, creatinine 0.9. IMPRESSION: An 84-year-old with: 1. Jcpvk-fi-dylvvse hypoxemic respiratory failure. 2. Gtxon-le-dhttesc hypercapnic respiratory failure. 3. Large bilateral pleural effusions. 4. Pwyqv-rv-ujvhzza cor pulmonale. 5. Diastolic heart failure. 6. Atrial fibrillation. DISCUSSION: An 84-year-old with problems outlined above. She continues to slowly diurese with increasing serum bicarbonate noted. Her blood pressure is marginal and I will not give her any extra Lasix tonight. PLAN: 1. Continue BiPAP. 2. Continue diuresis on current schedule. 3. Follow up chest x-ray tomorrow. cc: Charli Solares MD
[2019-03-22] MEDS: LEVAQUIN 500 MG/D5W 500 MG/100 ML IVPB IV SCH (01:29)
[2019-03-22] MEDS: LASIX IV SCH ×2 (01:29→13:06)
[2019-03-22] MEDS: CARDIZEM PO SCH (03:35)
--- NOTE | 2019-03-22 07:20 | Diag Imaging Result Doc PS360 ---
EXAM: CHEST-PORTABLE HISTORY: abnormal exam TECHNIQUE: Single view COMPARISON: 03/20/2019 FINDINGS: There is a moderate-sized right pleural effusion and small left pleural effusion. Heart is mildly enlarged and there is pulmonary edema. Bibasilar atelectasis. IMPRESSION: The lungs are better expanded on the current exam, otherwise no significant interval change. Electronically signed by Kevin Nguyen 03/22/2019 7:18 AM
--- NOTE | 2019-03-22 08:23 | PROGRESS NOTE ---
DATE: 03/22/2019 DIAGNOSTIC DATA: On chest x-ray from this morning, the lungs are better expanded and otherwise no significant change. Moderate-sized right pleural effusion. Small left pleural effusion. Heart is mildly enlarged. There is pulmonary edema. PHYSICAL EXAMINATION: General: On exam, she is awake. There is some confusion. Lungs: Decreased breath sounds of both bases, but otherwise moving air pretty good. She is still on the BiPAP. Vital Signs: Temperature 97 degrees, pulse 100, respirations 30, blood pressure 96/50. Abdomen: Soft. Skin: Warm and dry. Extremities: No pedal edema. Cardiovascular: Exam is regular rhythm and rate without murmur or S3. ASSESSMENT: 1. Acute on chronic hypoxemic respiratory failure. 2. Acute on chronic hypercapnic respiratory failure. 3. Large bilateral pleural effusions, larger on the right. 4. Acute on chronic cor pulmonale. 5. Diastolic heart failure. 6. Atrial fibrillation, rate seems to be controlled. PLAN: Continue present measures, see if we can get to sit her up in a chair today and start working on her strength as well. REVIEW OF ORDERS: She is getting Lasix 40 mg IV every 12 hours, Cardizem CD 120 mg p.o. every a.m. and we are still on the Cardizem 30 mg p.o. every 6 hours, so I may increase the Cardizem CD to 180 and stop the other Cardizem. cc: Nabil Hahn MD
[2019-03-22] MEDS: ATIVAN PO SCH ×2 (08:55→20:50)
[2019-03-22] MEDS: CARDIZEM CD PO SCH (08:55)
[2019-03-22] MEDS: ELIQUIS PO SCH ×2 (08:55→20:50)
[2019-03-22] MEDS: FERROUS SULFATE PO SCH (08:55)
[2019-03-22] MEDS: KLOR-CON PO SCH (08:55)
[2019-03-22] MEDS: ALDACTONE PO SCH (08:55)
[2019-03-22] MEDS: LOPRESSOR PO SCH ×2 (08:55→20:49)
[2019-03-22] MEDS: MORPHINE IV PRN (17:00)
[2019-03-22] MEDS: FOLIC ACID PO SCH (20:51)
[2019-03-22] MEDS: REMERON PO SCH (20:51)
[2019-03-22] MEDS: CYMBALTA PO SCH (20:51)
--- NOTE | 2019-03-22 21:50 | PULMONOLOGY PROGRESS NOTE ---
DATE: 03/22/2019 SUBJECTIVE: The patient is awake and alert. Family reports her oxygen saturation drops when her BiPAP is removed. She appears to be comfortable. OBJECTIVE: Vital Signs: Blood pressure 86/49, heart rate 100, respiratory rate 28, oxygen saturation 100%. HEENT: Pupils are equal and reactive. Oropharynx appears clear, but evaluation is limited. Neck: Supple. Chest: Diminished breath sounds, right base. Cardiac: S1, S2. Abdomen: Soft. Extremities: Decreasing edema. LABORATORIES: Chest x-ray reveals moderate right-sided effusion with smaller left-sided effusion, with cardiomegaly and pulmonary edema. White blood count not obtained today. Electrolytes not obtained today. IMPRESSION: An 84-year-old with: 1. Acute on chronic hypoxemic respiratory failure. 2. Acute on chronic hypercapnic respiratory failure. 3. Bilateral effusions. 4. Diastolic heart failure. 5. Acute on chronic cor pulmonale. DISCUSSION: An 84-year-old with problems outlined above. Her chest x-ray has marginally improved, but she continues to require significant oxygen to maintain saturation greater than 90%. We are reaching the limits of diuresis. Her blood pressure is now less than 90 systolic. It is not clear that significant additional diuresis can be obtained. Family is at the bedside. They are considering palliative care/comfort measures after discussion with Dr. Hahn earlier today. PLAN: 1. Continue BiPAP for comfort measures. 2. Diuresis as tolerated. 3. Agree with end of life discussions. Her prognosis is poor. cc: MD Nabil Shearer MD
[2019-03-23] MEDS: LEVAQUIN 500 MG/D5W 500 MG/100 ML IVPB IV SCH (00:19)
[2019-03-23] MEDS: LASIX IV SCH ×2 (00:33→13:04)
[2019-03-23 06:32] LABS: ESTIMATED GFR > 60
[2019-03-23 06:39] LABS: AGAP 12; BUN 27 mg/dL (8-22); CALCIUM 8.8 mg/dL (8.8-10.2); CHLORIDE 87 mmol/L (98-107); COSMO 293; CREATININE 0.8 mg/dL (0.5-0.9); GLUCOSE 90 mg/dL (70-104); POTASSIUM 3.5 mmol/L (3.5-5.1); SODIUM 145 mmol/L (136-145); TCO2 46 mmol/L (25-35)
[2019-03-23] MEDS: LOPRESSOR PO SCH (09:50)
[2019-03-23] MEDS: ALDACTONE PO SCH (09:51)
[2019-03-23] MEDS: FERROUS SULFATE PO SCH (09:51)
[2019-03-23] MEDS: CARDIZEM CD PO SCH (09:51)
[2019-03-23] MEDS: ELIQUIS PO SCH (09:53)
[2019-03-23] MEDS: ATIVAN PO SCH (09:53)
--- NOTE | 2019-03-23 10:02 | PROGRESS NOTE ---
DATE: 03/23/2019 SUBJECTIVE: Ms. Burrell is awake and asking for Sprite. She is still requiring BiPAP to keep her sats above 90. OBJECTIVE: Vital Signs: Remains afebrile. Temperature 97.6 degrees, pulse 89, respirations 18, blood pressure 100/51. HEENT: Pupils are equal and round. Lungs: Clear in all lung kendall. Cardiovascular: Regular rhythm and rate without murmur or S3. Abdomen: Soft. Skin: Warm and dry. ASSESSMENT AND PLAN: 1. Acute on chronic hypoxemic respiratory failure. 2. Acute on chronic hypercapnic respiratory failure. 3. Large bilateral pleural effusions, larger on the right. 4. Acute on chronic cor pulmonale. 5. Diastolic heart failure. 6. Atrial fibrillation. Rate is controlled. Note she is requiring maximum oxygen and BiPAP to keep her sats up and the family has discussed whether they will continue present measures or withdraw care and go for comfort measures. Prognosis is poor. I am not sure if she is going to be able to get out of the hospital. I do not anticipate she will get to go back to independent living. ORDERS/LABS: On review of her orders and review of her lab, I do not see any change. Electrolytes this morning show sodium 145, potassium 3.5, chloride 87, BUN 27, creatinine 0.8. cc: Nabil Hahn MD
[2019-03-23] MEDS: KLOR-CON PO SCH (11:15)
[2019-03-23] MEDS: MORPHINE IV PRN ×2 (18:54→22:47)
[2019-03-24] MEDS: MORPHINE IV PRN ×12 (00:22→22:57)
[2019-03-24] MEDS: LASIX IV SCH ×2 (00:22→13:03)
--- NOTE | 2019-03-24 09:11 | PROGRESS NOTE ---
DATE: 03/24/2019 SUBJECTIVE: Ms. Burrell has agonal breathing. She is not really responsive at all and she has been moved to a private room, comfort measures. OBJECTIVE: Vital signs: Temperature 97.6 degrees, pulse 100, respirations 18, blood pressure 109/52. HEENT: Pupils are equal and round. Lungs: Clear in all lung kendall. Cardiovascular: Regular rhythm and rate without murmur or S3. Abdomen: Soft. Skin: Warm and dry. Weight is 126 pounds, height 5 feet 5 inches. ASSESSMENT AND PLAN: 1. Acute on chronic hypoxemic respiratory failure. 2. Acute on chronic hypercapnic respiratory failure. 3. Large bilateral pleural effusions, larger on the right. 4. Acute on chronic cor pulmonale. 5. Diastolic heart failure. 6. Underlying atrial fibrillation, rate is controlled. 7. End-stage chronic obstructive pulmonary disease comfort measures. 8. Continue present measures. I do not think she will survive the day. cc: Nabil Hahn MD
[2019-03-24 19:37] VITALS: BP 71/31
[2019-03-25] MEDS: LASIX IV SCH (01:01)
[2019-03-25] MEDS: MORPHINE IV PRN (01:02)
--- NOTE | 2019-04-29 18:27 | DISCHARGE SUMMARY ---
ADMISSION DATE: 03/14/2019 DISCHARGE DATE: 03/25/2019 SUMMARY: DATE OF : 03/25/2019. HOSPITAL COURSE: An 84-year-old female with a history of chronic atrial fibrillation, COPD, hypertension, congestive heart failure, and dementia, brought to the emergency department with worsening confusion. Apparently, family states that she was talking out of her mind earlier that day of admission. She went to the bathroom and she fell down. Brought to the emergency department where she was evaluated. Imaging done that showed possibility of pneumonia. She also appeared to have a urinary tract infection. Past medical history includes history of chronic atrial fibrillation, COPD, hypertension, congestive heart failure, and dementia. She was admitted with altered mental status, chronic COPD exacerbation, hypercapnia, suspected pneumonia, urinary tract infection, chronic atrial fibrillation, and congestive heart failure. Pulmonary was consulted and felt she had acute on chronic hypoxemic respiratory failure, acute on chronic hypercapnic respiratory failure, pleural effusions, atrial fibrillation, diastolic heart failure, and acute on chronic cor pulmonale. Continued BiPAP and tried to diurese and supplementary oxygen/bronchodilators. On x-ray, only marginally improved. Continued to require significant oxygen to maintain saturation greater than 90% and reaching limits of her diuresis. Not clear whether any more significant diuresis could be obtained. They considered palliative care and continued current measures. Became pretty much unresponsive. The patient found unresponsive with no respirations and was pronounced . Time of was 1:30 on 03/25/2019. cc: Nabil Hahn MD
== END 2019-03-25 01:30 | disposition expired | DRG 193 ==
LOC: ED 15:27 → EDIPHOLD 22:43 → SUATTDRO 22:43 → 2N 03-15 07:11 → 4N 03-23 21:41
PROVIDERS: ADMIT Emergency Medicine; ATTEND Emergency Medicine